=== PATIENT | female | born 1975 | race Caucasian/White ===

== ENCOUNTER 2016-05-13 16:34 | Outpatient (CLI) | payer BC ==
[~2016-05-13] VITALS: Ht 167.6 cm; Wt 97.1 kg
[~2016-05-13 16:34] MED LIST: ALPR-411 PO; FRC PO; SUMA6KIT; TOPI100T20 PO
[2016-05-13] MEDS ORDERED: ACETAMINOPHEN 325 MG TAB PO PRN (17:00)
[2016-05-13] MEDS ORDERED: LACTATED RINGER'S 1000ML 500 ML IV ONE (17:00)
[2016-05-13] MEDS ORDERED: LACTATED RINGER'S 1000ML 1,000 ML IV SCH (17:00)
[2016-05-13] MEDS ORDERED: ONDANSETRON INJ 2 MG/ML 2 ML VIAL IV PRN (17:00)
[2016-05-13 17:54] LABS: BASO % 0.3 %; BASO ABS # 0.03 K/uL (0-0.2); COMPLETE YES; EOS % 1.9 %; HEMATOCRIT 40.7 % (37-47); IG% 1.2 %; LYMPH % 14.6 %; LYMPH ABS # 1.58 K/uL (1.2-3.4); MEAN CELL VOLUME 87.9 fL (80-100); MEAN CORPUSCULAR HEMOGLOBIN 30.5 pg (25-34); MEAN CORPUSCULAR HGB CONC 34.6 g/dl (32-36); MEAN PLATELET VOLUME 9.6 fL (7.4-10.4); MONO % 8.4 %; NEUT % 73.6 %; PLATELET COUNT 267 K/uL (130-400); RED BLOOD COUNT 4.63 M/uL (4.2-5.4)
[2016-05-13 18:11] LABS: BUN/CREATININE RATIO 17.4 (10-20); CALCIUM 8.8 mg/dl (8.5-10.1); CREATININE 0.65 mg/dl (0.60-1.20); POTASSIUM 3.6 mmol/L (3.5-5.1)
[2016-05-13 18:16] LABS: ALB/GLOB RATIO 0.6 (0.9-2)
--- NOTE | 2016-05-13 18:39 | DIAGNOSTIC IMAGING REPORT ---
ULTRASOUND LIMITED CLINICAL HISTORY: Cervical length assessment. COMPARISON STUDY: No priors. FINDINGS: Real-time grayscale sonography is performed to assess the cervical length. The appellate court judge was present during the examination. There is a single uterine gestation in cephalic presentation. The cervical length measures 3.6 cm. The cervical canal appears slightly widened. No funneling was seen with Valsalva. Fluid is noted within the endocervical canal. The fetus was not assessed. IMPRESSION: The cervix measures 3.6 cm in length. Fluid was noted in the cervical canal. Electronically signed by: Tristin Whitlock M.D. 05/13/2016 6:38 PM Dictated Date/Time: 05/13/2016 6:36 PM
[2016-05-13 19:12] LABS: INR 0.9 (0.9-1.1); PROTHROMBIN TIME (PATIENT) 9.7 SECONDS (9.0-12.0)
[2016-05-13 19:29] LABS: URINE APPEARANCE CLEAR (CLEAR); URINE BILIRUBIN NEG (NEG); URINE COLOR DK YELLOW; URINE EPITHELIAL CELL AUTO >30 /lpf (0-5); URINE NITRITE NEG (NEG); URINE SPECIFIC GRAVITY 1.028 (1.000-1.030); UROBILINOGEN NEG (NEG); ZZUR CULT IF INDIC CLEAN CATCH NO
[2016-05-13 19:37] VITALS: Ht 167.6 cm; Wt 97.1 kg
[2016-05-13 19:44] LABS: MANUAL MICROSCOPIC REQUIRED? NO; REVIEW REQ? YES
[2016-06-02] MEDS ORDERED: LEVE250T PO (14:11)
[2016-06-18] MEDS ORDERED: MTR600X PO (08:48)
[2016-06-18] MEDS ORDERED: OXYC-57 PO (08:48)
[2016-07-05] MEDS ORDERED: CHOL1000 PO (14:11)
[2016-07-05] MEDS ORDERED: MAGN400T6 PO (14:11)
== END 2016-05-13 21:23 | disposition home or self-care (01) ==
LOC: C.LD 16:34 → C.OPB 16:34
PROVIDERS: ATTEND Obstetrics & Gynecology
DX: O62.9 Abnormality of forces of labor, unspecified (principal); O09.513 Supervision of elderly primigravida, third trimester; O99.353 Diseases of the nervous system complicating pregnancy, third trimester; G40.909 Epilepsy, unspecified, not intractable, without status epilepticus; Z3A.34 34 weeks gestation of pregnancy

== ENCOUNTER 2016-05-14 14:41 | Outpatient (CLI) | payer BC ==
--- NOTE | 2016-05-14 15:28 | Progress Note ---
Progress Note Date of Service May 14, 2016. Progress Note Outpatient Note 40 F at 34.4 weeks with possible leakage of fluid noted today when she got up and sat on edge of bed. No leakage of fluid at presentation to L&D. No bleeding or cramping or contractions. Underpants were dry when she came in. Amnisure done was negative. Speculum exam done shows no pooling of fluid with Nitrazine negative and no ferning. Cervix is closed. FHT Cat 1. Urine was negative. Will discharge home. Follow up nefxt week in office.
[2016-05-14 15:46] LABS: URINE APPEARANCE CLEAR (CLEAR); URINE BILIRUBIN NEG (NEG); URINE COLOR YELLOW; URINE EPITHELIAL CELL AUTO 20-30 /lpf (0-5); URINE NITRITE NEG (NEG); URINE SPECIFIC GRAVITY 1.001 (1.000-1.030); UROBILINOGEN NEG (NEG); ZZUR CULT IF INDIC CLEAN CATCH NO
[2016-05-14 15:49] LABS: MANUAL MICROSCOPIC REQUIRED? NO; REVIEW REQ? NO
[2016-06-02] MEDS ORDERED: LEVE250T PO (14:11)
[2016-07-05] MEDS ORDERED: MAGN400T6 PO (14:11)
[2016-07-05] MEDS ORDERED: CHOL1000 PO (14:11)
== END 2016-05-14 16:10 | disposition home or self-care (01) ==
LOC: C.OPB 14:41 → C.LD 14:42 → C.OPB 16:10
PROVIDERS: ATTEND Obstetrics & Gynecology
DX: Z34.83 Encounter for supervision of other normal pregnancy, third trimester (principal); Z3A.34 34 weeks gestation of pregnancy

== ENCOUNTER 2016-05-18 15:09 | Outpatient (CLI) | payer BC ==
[~2016-05-18] VITALS: Ht 167.6 cm; Wt 97.0 kg
[2016-05-18] MEDS ORDERED: LACTATED RINGER'S 1000ML 1,000 ML IV SCH (15:25)
[2016-05-18] MEDS ORDERED: LACTATED RINGER'S 1000ML 500 ML IV ONE (15:25)
[2016-05-18] MEDS ORDERED: ONDANSETRON INJ 2 MG/ML 2 ML VIAL IV PRN (16:00)
[2016-05-18] MEDS ORDERED: ONDANSETRON INJ 2 MG/ML 2 ML VIAL ONE (16:00)
[2016-05-18] MEDS ORDERED: NURSING VERBAL MED ORDER ONE (17:00)
[2016-05-18] MEDS ORDERED: FAMOTIDINE IV INJ 20 MG in DEXTROSE 5% 100ML 100 ML IV STA (17:00)
--- NOTE | 2016-05-18 19:01 | Discharge Instructions ---
Discharge Instructions Date of Service May 18, 2016. Admission Reason for Admission: Check Pre-Term Labor Discharge Discharge Diagnosis / Problem: IUP 35.1 weeks, contractions, not in active labor Discharge Goals Goal(s): Continuing OB care Activity Recommendations Activity Limitations: per Instructions/Follow-up section . Instructions / Follow-Up Instructions / Follow-Up SPECIAL CARE INSTRUCTIONS: Call Doctor if: * Regular contractions every 5 minutes or greater. * Bleeding * Water breaks or is leaking * Decreased movement * Fever >100.4 degrees F * Pain not relieved by routine measures or pain medication ordered. FOLLOW UP VISIT: Patient is to be off work until Physician clears her at her next appointment. 05/20/16 Follow-up Visit with: [facility] When:Next scheduled appointment Current Hospital Diet Patient's current hospital diet: Discharge Diet Recommended Diet: Regular OB Diet Pending Studies Studies pending at discharge: no Medical Emergencies . Who to Call and When: Medical Emergencies: If at any time you feel your situation is an emergency, please call 911 immediately. . Non-Emergent Contact Non-Emergency issues call your: Investor Relations Associate . . "Provider Documentation" section prepared by Randolph Heath. VTE Core Measure Inpt VTE Proph given/why not?: Treatment not indicated
[2016-05-18 19:48] VITALS: Ht 167.6 cm; Wt 97.0 kg
[2016-05-18] MEDS ORDERED: LEVE750T PO (20:15)
[2016-05-18] MEDS ORDERED: LEVE250T PO (20:15)
[2016-06-02] MEDS ORDERED: LEVE250T PO (14:11)
[2016-06-18] MEDS ORDERED: OXYC-57 PO (08:48)
[2016-06-18] MEDS ORDERED: MTR600X PO (08:48)
[2016-07-05] MEDS ORDERED: MAGN400T6 PO (14:11)
[2016-07-05] MEDS ORDERED: CHOL1000 PO (14:11)
== END 2016-05-18 19:30 | disposition home or self-care (01) ==
LOC: C.LD 15:09 → C.OPB 15:09
PROVIDERS: ATTEND Obstetrics & Gynecology
DX: O62.9 Abnormality of forces of labor, unspecified (principal); Z3A.35 35 weeks gestation of pregnancy

== ENCOUNTER 2016-06-02 15:40 | Outpatient (CLI) | payer BC ==
[~2016-06-02] VITALS: Ht 167.6 cm; Wt 99.0 kg
[~2016-06-02 15:40] MED LIST changes: -ALPR-411 PO; +LEVE250T PO; +LEVE750T PO; -SUMA6KIT; -TOPI100T20 PO
[2016-06-02 17:26] VITALS: Ht 167.6 cm; Wt 99.0 kg
[2016-06-18] MEDS ORDERED: MTR600X PO (08:48)
[2016-06-18] MEDS ORDERED: OXYC-57 PO (08:48)
[2016-07-05] MEDS ORDERED: MAGN400T6 PO (14:11)
[2016-07-05] MEDS ORDERED: CHOL1000 PO (14:11)
== END 2016-06-02 16:45 | disposition home or self-care (01) ==
LOC: C.LD 15:40 → C.OPB 15:40
PROVIDERS: ATTEND Obstetrics & Gynecology
DX: O62.9 Abnormality of forces of labor, unspecified (principal); Z3A.37 37 weeks gestation of pregnancy

== ENCOUNTER 2016-06-15 05:30 | Inpatient (IN) | payer BC ==
--- NOTE | 2016-06-02 14:40 | PAT Medication Instructions ---
Service Date Jun 02, 2016. Current Home Medication List Cholecalciferol (Vitamin D3), 1 TAB PO QAM Levetiracetam (Keppra), 1,000 MG PO BID Magnesium Oxide (Mag-Ox), 400 MG PO QAM Multivit/Min/Iron/Fol Ac/Pren ( Vitamin), 1 TAB PO QAM Medication Instructions For Your Scheduled Surgery - Hold the following medications the morning of surgery: Multivit/Min/Iron/Fol Ac/Pren ( Vitamin), 1 TAB PO QAM Magnesium Oxide (Mag-Ox), 400 MG PO QAM Cholecalciferol (Vitamin D3), 1 TAB PO QAM - Take the following medications the morning of surgery with a sip of water: Levetiracetam (Keppra), 1,000 MG PO BID - Take the following medications as scheduled the night before surgery: Levetiracetam (Keppra), 1,000 MG PO BID If you have any questions please call us at [phone] (Ines Barron PA-C) or [phone] or [phone]
[2016-06-02 15:14] LABS: BASO % 0.2 %; BASO ABS # 0.02 K/uL (0-0.2); COMPLETE YES; EOS % 1.3 %; HEMATOCRIT 38.4 % (37-47); IG% 1.1 %; LYMPH % 16.4 %; LYMPH ABS # 1.37 K/uL (1.2-3.4); MEAN CELL VOLUME 89.1 fL (80-100); MEAN CORPUSCULAR HEMOGLOBIN 30.9 pg (25-34); MEAN CORPUSCULAR HGB CONC 34.6 g/dl (32-36); MEAN PLATELET VOLUME 9.7 fL (7.4-10.4); MONO % 5.4 %; NEUT % 75.6 %; PLATELET COUNT 207 K/uL (130-400); RED BLOOD COUNT 4.31 M/uL (4.2-5.4); WHITE BLOOD COUNT 8.36 K/uL (4.8-10.8)
--- NOTE | 2016-06-14 16:54 | HISTORY & PHYSICAL EXAMINATION ---
DATE OF ADMISSION: 06/15/2016 REASON FOR ADMISSION: Elective repeat section. HISTORY OF PRESENT ILLNESS: The patient is a 40-year-old female, para 2-1-1-7-2 who was admitted for an elective repeat section. PAST MEDICAL HISTORY: Positive for history of migraines, history of seizure disorder, history of depression, history of atrial septal defect. PAST SURGICAL HISTORY: Positive for appendectomy and primary . SOCIAL HISTORY: Denies smoking, alcohol or drug use. MEDICATIONS: vitamins, Fioricet as needed, magnesium 400 mg daily, Keppra 500 mg 2 tablets by mouth every 12 hours, and vitamin D. PHYSICAL EXAMINATION: HEENT: Within normal limits. LUNGS: Clear to auscultation. COR: Regular rate and rhythm. ABDOMEN: Soft, gravid. heart tone category 1. NEUROLOGICALLY: Intact. EXTREMITIES: Within normal limits. SKIN: No rash or edema. ASSESSMENT: Term for elective repeat section.
[2016-06-15] VITALS (11 sets, daily range): BP systolic 123–130; BP diastolic 69–85; PULSE 93–94; TEMP 36.8; O2SAT 100; Ht 167.6 cm; Wt 97.3 kg
[~2016-06-15] VITALS: Ht 167.6 cm; Wt 97.3 kg
[~2016-06-15 05:30] MED LIST changes: -FRC PO; -LEVE750T PO
[2016-06-15] MEDS ORDERED: CEFAZOLIN IV 2,000 MG in DEXTROSE 5% 50ML IV SCH (06:00)
[2016-06-15] MEDS ORDERED: LACTATED RINGER'S 1000ML 1,000 ML IV SCH ×2 (06:00→09:02)
[2016-06-15] MEDS ORDERED: CITRIC ACID/SODIUM CITRATE 15 ML UDC PO SCH (06:00)
[2016-06-15 06:16] LABS: BASO % 0.4 %; BASO ABS # 0.04 K/uL (0-0.2); HEMATOCRIT 40.5 % (37-47); IG% 0.8 %; LYMPH % 17.8 %; MEAN CELL VOLUME 90.8 fL (80-100); MEAN CORPUSCULAR HEMOGLOBIN 31.4 pg (25-34); MEAN PLATELET VOLUME 9.7 fL (7.4-10.4); MONO % 9.9 %; NEUT % 69.1 %; PLATELET COUNT 231 K/uL (130-400); RED BLOOD COUNT 4.46 M/uL (4.2-5.4); WHITE BLOOD COUNT 9.54 K/uL (4.8-10.8)
[2016-06-15 06:26] LABS: COMPLETE YES; MEAN CORPUSCULAR HGB CONC 34.6 g/dl (32-36)
--- NOTE | 2016-06-15 07:15 | History & Physical Bridge Note ---
H&P Re-Evaluation Bridge Note: I have examined the patient, reviewed the History & Physical and in the interval since the performance of the History & Physical I have noted the following changes of clinical significance: No changes noted
[2016-06-15] MEDS ORDERED: FENTANYL CITRATE INJ 50 MCG/1 ML 2 ML VIAL ONE (07:21)
[2016-06-15] MEDS ORDERED: MoRPHine SULFATE PF 1 MG/ML 10 ML AMP/VIAL ONE (07:22)
[2016-06-15] MEDS ORDERED: OXYTOCIN INJ 10 UNITS/ML VIAL ONE (07:24)
[2016-06-15] MEDS ORDERED: OXYTOCIN INJ 20 UNITS in LACTATED RINGER'S 1000ML 1,000 ML IV SCH (09:02)
[2016-06-15] MEDS ORDERED: NALOXONE HCL INJ 0.08 MG in SYRINGE 1.8 ML IV PRN (09:04)
[2016-06-15] MEDS ORDERED: LACTATED RINGER'S 1000ML 500 ML IV PRN (09:04)
[2016-06-15] MEDS ORDERED: SODIUM CHLORIDE 0.9% 1000ML 1,000 ML IV PRN (09:04)
[2016-06-15] MEDS ORDERED: NALOXONE HCL INJ 1 MG in SODIUM CHLORIDE 0.9% 1000ML 1,000 ML IV PRN ×4 (09:04)
--- NOTE | 2016-06-15 09:10 | [facility] Post Operative Brief Note ---
Immediate Operative Summary Operative Date Repeat section low segment transverse Jun 15, 2016. Pre-Operative Diagnosis Previous Caesarean Section; Desires Repeat Caesarean Section and Bilateral Tubal Ligation. Post-Operative Diagnosis elective repeat section low segment transverse Procedure(s) Performed Live Female Infant at [address] Gilman Horse And Wagon Driver Surgeon(s) Dr. Gunn Estimated Blood Loss 800 ML. Findings live female Apgars 8/9 Fluids (cc crystalloids) LR 1900 ml Specimens Placenta (Exam) Cord Blood Drains Bell urine 400 ml. Anesthesia spinal Complication(s) None Disposition L&D
[2016-06-15] MEDS ORDERED: MoRPHine SULFATE PF 1 MG/ML 10 ML AMP/VIAL EPI PRN (09:15)
[2016-06-15] MEDS ORDERED: MAGNESIUM HYDROXIDE SUSP 30 ML UDC PO PRN (09:15)
[2016-06-15] MEDS ORDERED: DIPHTHERIA/TETANUS/PERTUSSIS 0.5 ML SYR/VIAL IM. ONE (09:15)
[2016-06-15] MEDS ORDERED: SENNA 8.6 MG TAB PO PRN (09:15)
[2016-06-15] MEDS ORDERED: ONDANSETRON INJ 2 MG/ML 2 ML VIAL IV PRN (09:15)
[2016-06-15] MEDS ORDERED: DiphenhydrAMINE HCL 50 MG/ML VIAL IV PRN (09:15)
[2016-06-15] MEDS ORDERED: SUPERCREAM 0.870 % 15GM JAR EXT PRN (09:15)
[2016-06-15] MEDS ORDERED: KETOROLAC TROMETHAMINE 30 MG/ML VIAL IV. PRN (09:15)
[2016-06-15] MEDS ORDERED: HYDROCORTISONE ACETATE 25 MG SUPP PR PRN (09:15)
[2016-06-15] MEDS ORDERED: EpHEDrine SULFATE INJ 50 MG/ML AMP IV PRN (09:15)
[2016-06-15] MEDS ORDERED: NALOXONE HCL 0.4 MG/1 ML VIAL/CARP IV PRN (09:15)
[2016-06-15] MEDS ORDERED: MEASLES, MUMPS & RUBELLA VIRUS VIAL SQ. ONE (09:15)
[2016-06-15] MEDS ORDERED: LANOLIN OINT EXT PRN ×2 (09:15)
[2016-06-15] MEDS ORDERED: PROMETHAZINE HCL INJ 25 MG in SODIUM CHLORIDE 0.9% 50ML 50 ML IV PRN (09:15)
[2016-06-15] MEDS ORDERED: NALBUPHINE HCL INJ 10 MG/ML AMP IV PRN (09:15)
[2016-06-15] MEDS ORDERED: NO NARCOTICS OR SEDATIVES SCH (09:15)
[2016-06-15] MEDS ORDERED: BENZOCAINE 20% AER SPR 82.5 GM CAN EXT PRN (09:15)
--- NOTE | 2016-06-15 09:15 | Anesthesiology Progress Note ---
Anesthesia Post Op Note Date & Time Jun 15, 2016 at 09:15 Vital Signs Pain Intensity: 2.0 Notes Mental Status: alert / awake / arousable, participated in evaluation Pt Amnestic to Procedure: No Nausea / Vomiting: adequately controlled Pain: adequately controlled Airway Patency, RR, SpO2: stable & adequate BP & HR: stable & adequate Hydration State: stable & adequate Neuraxial Anesthesia: was administered, sensory block is resolving Anesthetic Complications: no major complications apparent
[2016-06-15] MEDS ORDERED: KETOROLAC TROMETHAMINE 30 MG/ML VIAL ONE (09:17)
--- NOTE | 2016-06-15 10:25 | OPERATIVE REPORT ---
DATE OF OPERATION: 06/15/2016 PREOPERATIVE DIAGNOSIS: Repeat section, low segment transverse. POSTOPERATIVE DIAGNOSIS: Same. PROCEDURE PERFORMED: Repeat section, low segment transverse. SURGEON: Dr. Gilman. HYDRAULIC PRESS OPERATOR: Dr. Gunn. ESTIMATED BLOOD LOSS: 800 mL. ANESTHESIA: Spinal. FINDINGS: Live female, Apgars 8 and 9, weight 8-4. COMPLICATIONS: None. SPECIMENS: Placenta and cord blood. FLUIDS TOTAL: LR 1900 mL. URINE OUTPUT: 400 mL clear urine. CLINICAL HISTORY: The patient is a 40-year-old female para 2-1-1-7-2 at 39 and 1 day, admitted for an elective repeat section and planned tubal ligation. The patient was identified prior to the start of the procedure and a time-out was called. It should be noted that a tubal ligation was not performed due to the uterus being stuck to the abdominal wall and unable to remove the uterus or to adequately visualize tubes. PROCEDURE: Under satisfactory spinal anesthesia, the patient was prepped and draped in usual sterile fashion. A low Pfannenstiel incision was then made entering into the abdominal cavity in successful layers. The uterus was stuck to the abdominal wall, it was very difficult to dissect into the peritoneal cavity. The bladder blade was entered as a low segment transverse incision was made after the bladder was secured inferiorly. Clear urine was noted after the incision was made into the uterus. The incision was widened in the AP diameter. The infant was then delivered from the vertex presentation with the aid of fundal pressure. Late cord clamping was accomplished. The cord was then clamped and cut, delivering a live female, Apgars 8 and 9, weight 8-4. Cord blood was obtained. Placenta was then manually removed intact and submitted to pathology as a separate specimen. The uterus was not able to be exteriorized due to dense adhesions and the uterus being stuck to the abdominal wall. Ring forceps were then placed on both angles, the inferior margin and another ring was used to dilate the cervix. The uterus was closed in double layer closure with 0 Vicryl suture in a continuous interlocking fashion followed by a second imbricating suture of 0 Vicryl suture. The initial sponge, needle and instrument count were found to be correct. The uterus was inspected. Several areas were cauterized with the Bovie and Ximena was then used to seal some of the small vessel bleeding. Several pieces of Seprafilm were then placed. The fascia was then reapproximated from both ends using 0 Vicryl suture in a continuous fashion. Subcuticular space was irrigated. Bleeders were then cauterized. The skin was then reapproximated with lily. Clear urine was noted from the Bell. Estimated blood loss 800 mL. The final sponge, needle and instrument count were found to be correct. The patient was then placed supine on a stretcher and taken to recovery room in stable condition. I attest to the content of the Intraoperative Record and any orders documented therein. Any exceptio ns are noted below.
[2016-06-15] MEDS ORDERED: NURSING VERBAL MED ORDER ONE (10:30)
[2016-06-15] MEDS: SIMETHICONE 80 MG CHEW PO SCH ×3 (13:00→19:40)
[2016-06-15] MEDS ORDERED: HYDROmorphone INJ 2 MG/ML SYR/VIAL IV PRN (13:30)
[2016-06-15] MEDS: LEVETIRACETAM 500 MG TAB PO SCH (19:04)
[2016-06-15] MEDS: DOCUSATE SODIUM 100 MG CAP PO SCH (19:40)
[2016-06-16] VITALS (9 sets, daily range): BP systolic 109–137; BP diastolic 67–117; PULSE 98–107; TEMP 36.8–36.9; O2SAT 95–100
[2016-06-16] MEDS ORDERED: OXYCODONE/ACETAMINOPHEN 5-325 TAB PO PRN (03:00)
[2016-06-16] MEDS ORDERED: MEPERIDINE HCL 75 MG/ML CARP IV PRN (03:00)
[2016-06-16] MEDS ORDERED: MEPERIDINE HCL 50 MG/ML CARP IV PRN (03:00)
[2016-06-16] MEDS ORDERED: DiphenhydrAMINE HCL 50 MG/ML VIAL IV PRN (03:00)
[2016-06-16] MEDS ORDERED: DC INTRASPINAL MORPHINE SCH (03:00)
[2016-06-16] MEDS ORDERED: ONDANSETRON INJ 2 MG/ML 2 ML VIAL IV PRN (03:00)
[2016-06-16] MEDS ORDERED: KETOROLAC TROMETHAMINE 30 MG/ML VIAL IV. PRN (03:00)
[2016-06-16] MEDS: IBUPROFEN 600 MG TAB PO PRN ×5 (03:15→23:38)
[2016-06-16] MEDS: OXYCODONE/ACETAMINOPHEN 5-325 TAB PO PRN ×5 (06:02→23:38)
--- NOTE | 2016-06-16 07:18 | OB/GYN Progress Note ---
DRY TALC RACKER Progress Note Date of Service Jun 16, 2016. Subjective conversation w/ patient, physical exam Ambulation: ambulating normally Voiding: no voiding problems Passing Gas: Yes Diet Tolerance: Regular Diet Lochia: Small Feeding Type: Breast Feeding Pain: 03/23 Notes: Doing well. Pain well controlled. States she feels pretty good. Gonzalez in place and draining clear urine. Lochia minimal. Objective Vital Signs Date Time Temp Pulse Resp B/P Pulse Ox O2 Delivery O2 Flow Rate FiO2 06/16/16 03:30 36.9 104 18 137/82 Room Air 06/16/16 03:00 18 100 06/16/16 02:00 18 100 06/16/16 01:00 18 100 06/16/16 01:00 18 95 06/16/16 00:00 20 98 06/16/16 00:00 36.8 98 18 109/117 98 Room Air 06/16/16 00:00 98 Room Air 06/15/16 23:00 18 100 06/15/16 22:00 20 100 06/15/16 21:00 20 100 06/15/16 20:00 18 100 06/15/16 19:45 100 Room Air 06/15/16 19:00 18 100 06/15/16 18:00 20 100 06/15/16 17:00 20 100 06/15/16 16:36 100 Room Air 06/15/16 16:00 20 100 06/15/16 15:00 100 Room Air 06/15/16 15:00 20 100 06/15/16 15:00 36.8 93 20 123/69 100 Room Air Physical Exam General Appearance: WELL-APPEARING Respiratory/Chest: chest non-tender, lungs clear Cardiovascular: regular rate, rhythm Abdomen: normal bowel sounds Fundus: Firm Incision Description: Clean, Dry & Intact Extremities: normal range of motion, non-tender, no calf tenderness Laboratory Results Last 24 Hours Test 06/16/16 06:26 Assessment and Plan Post-Op Day Number: 1 Continue Routine Care: -D/C gonzalez this AM -Advance diet and activity as tolerated -Continue routine postop care
[2016-06-16] MEDS: LEVETIRACETAM 500 MG TAB PO SCH ×2 (07:48→19:48)
[2016-06-16] MEDS: SIMETHICONE 80 MG CHEW PO SCH ×4 (07:49→19:48)
[2016-06-16] MEDS: DOCUSATE SODIUM 100 MG CAP PO SCH ×2 (07:49→19:47)
[2016-06-16] MEDS: FERROUS SULFATE 325 MG TAB PO SCH (07:49)
[2016-06-16] MEDS: PRENATAL VITAMIN TAB PO SCH (07:49)
[2016-06-16 08:24] LABS: BASO % 0.2 %; BASO ABS # 0.02 K/uL (0-0.2); COMPLETE YES; EOS % 1.5 %; HEMATOCRIT 34.3 % (37-47); IG% 0.4 %; LYMPH % 11.7 %; LYMPH ABS # 1.11 K/uL (1.2-3.4); MEAN CELL VOLUME 91.2 fL (80-100); MEAN CORPUSCULAR HEMOGLOBIN 31.4 pg (25-34); MEAN CORPUSCULAR HGB CONC 34.4 g/dl (32-36); MONO % 11.4 %; NEUT % 74.8 %; PLATELET COUNT 193 K/uL (130-400); RED BLOOD COUNT 3.76 M/uL (4.2-5.4); WHITE BLOOD COUNT 9.51 K/uL (4.8-10.8)
--- NOTE | 2016-06-16 10:06 | Anesthesiology Progress Note ---
Anesthesia Post Op Note Date & Time Jun 16, 2016 at 10:06 Vital Signs Pain Intensity: 3.0 Vital Signs Past 12 Hours Date Time Temp Pulse Resp B/P Pulse Ox O2 Delivery O2 Flow Rate FiO2 06/16/16 07:40 36.8 103 20 125/67 96 Room Air 06/16/16 07:40 Room Air 06/16/16 03:30 36.9 104 18 137/82 Room Air 06/16/16 03:00 18 100 06/16/16 02:00 18 100 06/16/16 01:00 18 100 06/16/16 01:00 18 95 06/16/16 00:00 20 98 06/16/16 00:00 36.8 98 18 109/117 98 Room Air 06/16/16 00:00 98 Room Air 06/15/16 23:00 18 100 Notes Mental Status: alert / awake / arousable, participated in evaluation Pt Amnestic to Procedure: Yes Nausea / Vomiting: adequately controlled Pain: adequately controlled Airway Patency, RR, SpO2: stable & adequate BP & HR: stable & adequate Hydration State: stable & adequate Neuraxial Anesthesia: sensory block resolved Anesthetic Complications: no major complications apparent
[2016-06-16] MEDS ORDERED: BISACODYL 5 MG TABEC PO ONE (22:00)
[2016-06-17] MEDS: IBUPROFEN 600 MG TAB PO PRN ×4 (06:07→20:02)
[2016-06-17] MEDS: OXYCODONE/ACETAMINOPHEN 5-325 TAB PO PRN ×4 (06:08→20:02)
[2016-06-17 07:30] VITALS: BP 112/74; PULSE 92; TEMP 36.2; O2SAT 98
[2016-06-17] MEDS: DOCUSATE SODIUM 100 MG CAP PO SCH ×2 (07:45→19:55)
[2016-06-17] MEDS: FERROUS SULFATE 325 MG TAB PO SCH (07:45)
[2016-06-17] MEDS: SIMETHICONE 80 MG CHEW PO SCH ×4 (07:45→19:56)
[2016-06-17] MEDS: PRENATAL VITAMIN TAB PO SCH (07:45)
[2016-06-17] MEDS: LEVETIRACETAM 500 MG TAB PO SCH ×2 (07:45→19:56)
--- NOTE | 2016-06-17 07:47 | OB/GYN Progress Note ---
SYSTEMS INTEGRATOR Progress Note Date of Service: Jun 17, 2016. Patient is seen and examined. She feels well, no complaints. Pain is under control with oral meds. Ambulating without dizziness Voiding without difficulty Tolerating regular diet with out N&V Flatus + BM NEG Bleeding is minimal No fever/ chills/ CP/ SOB/ N&V/ Leg pain Breast and bottle feeding without problems Date Time Temp Pulse Resp B/P Pulse Ox O2 Delivery O2 Flow Rate FiO2 06/16/16 23:30 97 Room Air 06/16/16 16:50 36.8 107 16 126/81 97 Room Air 06/16/16 16:45 Room Air Test 05/13/16 17:47 05/13/16 18:00 05/14/16 15:18 05/14/16 16:10 Prothrombin Time 9.7 Prothrombin Time INR 0.9 PTT 25.9 Partial Thromboplastin Ratio 1.0 Fibrinogen 442 H Sodium Level 139 Potassium Level 3.6 Chloride Level 108 H Carbon Dioxide Level 18 L Anion Gap 13.0 H Blood Urea Nitrogen 11 Creatinine 0.65 Est Creatinine Clear Calc Drug Dose 137.8 Estimated GFR () 130.5 Estimated GFR (Non- 112.6 BUN/Creatinine Ratio 17.4 Random Glucose 143 H Calcium Level 8.8 Total Bilirubin 0.4 Aspartate Amino Transferase (AST) 15 Alanine Aminotransferase (ALT) 29 Alkaline Phosphatase 89 Lactate Dehydrogenase 159 Total Protein 6.9 Albumin 2.7 L Globulin 4.2 H Albumin/Globulin Ratio 0.6 L Urine Color DK YELLOW YELLOW Urine Appearance CLEAR CLEAR Urine pH 6.0 7.0 Urine Specific [place] 1.028 1.001 Urine Protein TRACE H NEG Urine Glucose (UA) NEG NEG Urine Ketones TRACE H NEG Urine Occult Blood NEG 1+ H Urine Nitrite NEG NEG Urine Bilirubin NEG NEG Urine Urobilinogen NEG NEG Urine Leukocyte Esterase NEG NEG Urine WBC (Auto) 1-5 0 Urine RBC (Auto) 0-4 0-4 Urine Hyaline Casts (Auto) 5-10 H 1-5 Urine Epithelial Cells (Auto) >30 H 20-30 H Urine Bacteria (Auto) NEG NEG Urine Renal Epithelial Cells Amniotic Fluid Protein NEG Test 06/02/16 15:00 06/15/16 05:55 06/16/16 06:26 06/17/16 07:25 White Blood Count 8.36 9.54 9.51 Red Blood Count 4.31 4.46 3.76 L Hemoglobin 13.3 14.0 11.8 L Pending Hematocrit 38.4 40.5 34.3 L Pending Mean Corpuscular Volume 89.1 90.8 91.2 Mean Corpuscular Hemoglobin 30.9 31.4 31.4 Mean Corpuscular Hemoglobin Concent 34.6 34.6 34.4 Platelet Count 207 231 193 Mean Platelet Volume 9.7 9.7 10.0 Neutrophils (%) (Auto) 75.6 69.1 74.8 Lymphocytes (%) (Auto) 16.4 17.8 11.7 Monocytes (%) (Auto) 5.4 9.9 11.4 Eosinophils (%) (Auto) 1.3 2.0 1.5 Basophils (%) (Auto) 0.2 0.4 0.2 Neutrophils # (Auto) 6.32 6.59 H 7.12 H Lymphocytes # (Auto) 1.37 1.70 1.11 L Monocytes # (Auto) 0.45 0.94 H 1.08 H Eosinophils # (Auto) 0.11 0.19 0.14 Basophils # (Auto) 0.02 0.04 0.02 RDW Standard Deviation 47.2 H 48.7 H 48.6 H RDW Coefficient of Variation 14.5 14.6 H 14.7 H Immature Granulocyte % (Auto) 1.1 0.8 0.4 Immature Granulocyte # (Auto) 0.09 H 0.08 H 0.04 H Last 24 Hours Test 06/17/16 07:25 PE: General: Alert, orientedx3, NAD CVS: S1S2 RRR Lungs; CTAB Abd: soft, NT, fundus firm, below Umbilicus Incision: Clean, dry, intact, lily intact Perineum intact, Lochia rubra minimal Ext; NT, no edema AP: 40 yo s/p C Section, pod# 2 VSS Afebrile doing well Continue routine postop care Encourage ambulation, PO intake All questions were answered D/C home tomorrow
[2016-06-17 08:40] LABS: HEMATOCRIT 33.8 % (37-47)
[2016-06-17] MEDS ORDERED: BISACODYL 10 MG SUPP PR PRN (09:15)
--- NOTE | 2016-06-17 14:47 | OB/GYN Progress Note ---
FINISH INSPECTOR Progress Note Date of Service: Jun 17, 2016. Patient is reevaluated She started to feel right sided calf, lower leg pains for the last 2 hours It is tender to touch and swollen Left lower leg is more swollen No CP/SOB/ Dizziness Date Time Temp Pulse Resp B/P Pulse Ox O2 Delivery O2 Flow Rate FiO2 06/17/16 07:30 36.2 92 16 112/74 98 Room Air 06/17/16 07:30 98 Room Air 06/16/16 23:30 97 Room Air 06/16/16 16:50 36.8 107 16 126/81 97 Room Air 06/16/16 16:45 Room Air PE: Extrem: SCD's on Right: 1+ pretibial and ankle edema, tender to touch on right side of ankle and tibia, no redness or cord Left: 2+ pretibial and ankle edema, NT Plan: Doppler US of LE Continue to monitor
[2016-06-17 15:20] VITALS: BP 127/80; PULSE 110; TEMP 36.7; O2SAT 96
--- NOTE | 2016-06-17 16:40 | DIAGNOSTIC IMAGING REPORT ---
ULTRASOUND VENOUS DOPPLER LWR EXT BILA CLINICAL HISTORY: Leg pain. Recent . COMPARISON STUDY: No previous studies for comparison. FINDINGS: Real-time and color flow Doppler imaging were performed. Flow was seen within the femoral, popliteal and calf veins with no intraluminal thrombus demonstrated. The saphenous vein is patent. IMPRESSION: No evidence of lower extremity DVT. Electronically signed by: Antonio Zaldivar M.D. 06/17/2016 4:38 PM Dictated Date/Time: 06/17/2016 4:37 PM
--- NOTE | 2016-06-17 17:45 | OB/GYN Progress Note ---
MANAGER FOOD Progress Note Date of Service: Jun 17, 2016. Doppler US of LE is negative for DVT Patient is aware She has h/o Depression, was on Lexapro before, desires to start it back Will start at 10 mg for 0 days and may increase to 20 mg daily She appreciated All questions were answered
[2016-06-17] MEDS: ESCITALOPRAM OXALATE 10 MG TAB PO SCH (19:55)
[2016-06-17 22:10] VITALS: BP 123/75; PULSE 105; TEMP 36.7; O2SAT 96
[2016-06-17] MEDS ORDERED: BUTALBITAL/ACETAMIN/CAFFEINE TAB PO PRN (22:45)
[2016-06-17] MEDS ORDERED: ALPRAZOLAM 0.25 MG TAB PO PRN (22:45)
--- NOTE | 2016-06-17 22:47 | OB/GYN Progress Note ---
KICK PRESS SETTER Progress Note Date of Service: Jun 17, 2016. Patient started to have headache tonight It is typical migraine REEDER for her It has been behind her right eye and bahai, with light sensitivity She sees spots and lines those are typical aura symptoms for her too No numbness or tingling Nausea+ She used to take Topamax for prophylaxis. She stopped with knowledge of She has been taking OTC Magnesium cap 400 mg, she has not taken since she was admitted to hospital She takes Fioricet when she has REEDER VSS Afebrile No sensory or motor deficit No nuchal rigidity DTR: 1+/1+, no clonus AP: 40 yo s/p RLTCS now with migraine REEDER VSS Afebrile Will check LFT, Platelets Fioricet for REEDER Continue with magnesium prophylaxis Phenergan for nausea Continue to monitor
[2016-06-17] MEDS ORDERED: PROMETHAZINE HCL 25 MG TAB PO STA (22:48)
[2016-06-17 23:05] VITALS: BP 116/67; PULSE 100; TEMP 36.8; O2SAT 96
[2016-06-17 23:31] LABS: BASO % 0.2 %; BASO ABS # 0.02 K/uL (0-0.2); COMPLETE YES; EOS % 2.3 %; HEMATOCRIT 30.6 % (37-47); IG% 0.6 %; LYMPH % 16.5 %; LYMPH ABS # 1.55 K/uL (1.2-3.4); MEAN CORPUSCULAR HEMOGLOBIN 31.2 pg (25-34); MEAN CORPUSCULAR HGB CONC 34.6 g/dl (32-36); MEAN PLATELET VOLUME 9.2 fL (7.4-10.4); MONO % 8.8 %; NEUT % 71.6 %; PLATELET COUNT 193 K/uL (130-400); WHITE BLOOD COUNT 9.37 K/uL (4.8-10.8)
[2016-06-17 23:48] LABS: BUN/CREATININE RATIO 19.9 (10-20); CALCIUM 8.7 mg/dl (8.5-10.1); CREATININE 0.69 mg/dl (0.60-1.20); POTASSIUM 3.4 mmol/L (3.5-5.1)
[2016-06-17 23:51] LABS: ALB/GLOB RATIO 0.5 (0.9-2)
[2016-06-18 03:00] VITALS: BP 115/68; PULSE 87; TEMP 36.7; O2SAT 95
[2016-06-18] MEDS ORDERED: MAGNESIUM OXIDE 400 MG PO SCH ×2 (08:00)
[2016-06-18] MEDS ORDERED: OXYC-57 PO (08:48)
[2016-06-18] MEDS ORDERED: MTR600X PO (08:48)
--- NOTE | 2016-06-18 08:50 | Discharge Instructions ---
Discharge Instructions Date of Service Jun 18, 2016. Admission Reason for Admission: Previous Section, Desires Sterilization Discharge Discharge Diagnosis / Problem: term delivered by repeat Discharge Goals Goal(s): Routine recovery after surgery Activity Recommendations Activity Limitations: as noted below Lifting Limitations: no more than 10 pounds Exercise/Sports Limitations: gradually increase as tolerated May Resume Sexual Activity: after follow-up appointment Shower/Bathe: no limitations, keep incision dry Driving or Machine Use: . Instructions / Follow-Up Instructions / Follow-Up ACTIVITY RECOMMENDATIONS: * Gradual return to full activity over the next 2-3 weeks. * No lifting - nothing heavier than baby over the next 2-3 weeks. * Do not engage in vigorous exercise, sexual activity or sports until cleared by your physician. * Do not drive or operate any motorized equipment until cleared by your physician. * You may shower/bathe daily. BREAST CARE: If you are not breast feeding: * Wear a supportive bra 24 hours a day for one to two weeks. * Avoid stimulating your breasts and nipples as much as possible during the first few weeks after delivery. * When taking a shower, have the warm water hit your back, not breasts. * When your breasts feel full, apply ice packs. Usually three to four times a day helps ease the discomfort. * Take a mild pain medication (Tylenol/Motrin) when you are uncomfortable. If breast feeding: * Use breast milk to lubricate nipples. Lansinoh cream may be used for sore nipples. You do not need to remove cream prior to breast feeding. If using a different brand of cream, check the label for directions regarding removal of cream prior to nursing. * Wear a supportive bra. * If having problems with breasts or breast feeding, call a healthcare network pricing consultant or your health care provider. OVER THE COUNTER MEDICATION: * For discomfort or pain, you may use Acetaminophen (Tylenol), Ibuprofen (Advil ), or Naproxen (Aleve) following the package directions. * For constipation you may use Colace following the package directions. SPECIAL CARE INSTRUCTIONS: When you are discharged from the hospital, it is important for you to follow the instructions listed below: * During the first week at home, you should be able to care for yourself and your baby. In addition, the usual light household activities are encouraged. * Limit your activities to the way you feel. Do not try to clean the house or move furniture. Be sensible. * If you actively engage in sports and have done so up until the time of your delivery, you may resume these activities as soon as you feel able. This may take up to one month or even longer. Use good judgment. * Continue to take your vitamins for at least six weeks after the of your baby. * Your diet need not be limited unless you were on a special diet before your delivery. Breast-feeding mothers need around 2500 calories per day and at least 64-80 ounces of fluid per day (8 to 10 glasses). * You should eat foods from the four major food groups. Crash diets or fad diets are to be avoided. Eating lean meats, fresh fruits and vegetables, low-fat dairy products, high fiber foods and a regular exercise program, will help you get back to your pre- weight without putting your health at risk. * Constipation is sometimes a problem after delivery. Take a mild laxative as needed. If breast feeding, Milk of Magnesia is acceptable to use. You may use a suppository or Fleets enema if no episiotomy. * A daily shower or tub bath is suggested. Be sure to thoroughly and gently dry the perineum. * A bloody vaginal discharge will usually continue until around four weeks post . A small amount of bleeding may continue for as long as six weeks. Vaginal discharge changes from the bright red bleeding after delivery to pink then brownish and finally yellowish-pink before becoming white and disappearing. * Bleeding may increase with activity. Your first period may come in 4-8 weeks. If you are breast feeding, your period may be delayed even longer. * [place] (sex) can begin whenever both you and your partner feel comfortable and do not have any form of genital infection. It is recommended that you wait at least six weeks for internal and external healing to occur. If you have questions, please talk to your health care practitioner. A condom should be used to prevent infection and . * Foreplay, gentle intercourse and lubrication is very important the first several times to prevent pain. A water-based lubricant such as K-Y jelly or Astroglide may be used. * Tampons and/or Douching should be avoided until after six weeks check-up. * If you have RH negative blood and your baby is RH positive, you will receive RHOGAM by injection prior to discharge. The nurse will give you a card to keep with you that has the date and place that you received RHOGAM after delivery. * During your care, you had a Rubella screen done to check for the presence of rubella antibodies in your blood. If your test was negative, you will receive a Rubella vaccine prior to discharge. This vaccine may cause a fever, soreness at the injection site and flu-like symptoms. If these symptoms persist, notify your health care practitioner. is not advised for three months after a Rubella vaccine. * Verbalizes understanding of car seat law as reviewed with patient nursing. * Car Seat hand-out given and reviewed with patient by nursing. * Shaken baby information reviewed with patient by nursing. Call you doctor if: * Heavy bleeding (saturating several pads an hour) or passing clots the size of your fist. * A fever >101 degrees F (38.3 degrees C) on two occasions four hours apart and /or chills. * Unusual pain in the pelvic or vaginal areas. Pain should improve each day . * Call the doctor for any increased redness, drainage or swelling around the incision and any pain unrelieved by prescribed pain medication. * Any signs or symptoms of phlebitis (possible blood clots forming in the veins ): leg pain, warm, red or swollen area on leg. * "Baby Blues" lasting longer than two weeks. If you have any questions or concerns, call your health care practitioner at . FOLLOW-UP VISIT: * Incision check (staple removal) in 1 week. Please call doctor's office at to set up appointment. * Please call the office at to schedule a 6 week examination. It is important you keep this appointment. * It is important for you to make arrangements for either yearly or twice yearly check-ups thereafter. Current Hospital Diet Patient's current hospital diet: Regular OB Diet Discharge Diet Recommended Diet: Regular OB Diet Procedures Procedures Performed: Live Female Infant at 0812 Pending Studies Studies pending at discharge: no Medical Emergencies . Who to Call and When: Medical Emergencies: If at any time you feel your situation is an emergency, please call 911 immediately. . Non-Emergent Contact Non-Emergency issues call your: Primary Care Provider . . "Provider Documentation" section prepared by Hiro Gilman. VTE Core Measure Inpt VTE Proph given/why not?: Treatment not indicated
--- NOTE | 2016-06-18 08:52 | Surgery Progress Note ---
Surgery Progress Note Date of Service Jun 18, 2016. Subjective Post OP Day: 2 + feeling well Objective Vital Signs: Date Time Temp Pulse Resp B/P Pulse Ox O2 Delivery O2 Flow Rate FiO2 06/18/16 03:00 36.7 87 18 115/68 95 Room Air 06/17/16 23:05 36.8 100 18 116/67 96 Room Air 06/17/16 23:05 96 Room Air 06/17/16 22:10 36.7 105 20 123/75 96 Room Air 06/17/16 15:20 36.7 110 18 127/80 96 Room Air 06/17/16 15:20 96 Room Air General Appearance: no apparent distress Abdomen: non tender, non distended, soft Incision(s): clean, dry, intact Extremities: non-tender, normal inspection, no pedal edema Laboratory Results: Results Past 24 Hours Test 06/17/16 23:13 Range/Units White Blood Count 9.37 4.8-10.8 K/uL Red Blood Count 3.40 4.2-5.4 M/uL Hemoglobin 10.6 12.0-16.0 g/dL Hematocrit 30.6 37-47 % Mean Corpuscular Volume 90.0 80-100 fL Mean Corpuscular Hemoglobin 31.2 25-34 pg Mean Corpuscular Hemoglobin Concent 34.6 32-36 g/dl Platelet Count 193 130-400 K/uL Mean Platelet Volume 9.2 7.4-10.4 fL Neutrophils (%) (Auto) 71.6 % Lymphocytes (%) (Auto) 16.5 % Monocytes (%) (Auto) 8.8 % Eosinophils (%) (Auto) 2.3 % Basophils (%) (Auto) 0.2 % Neutrophils # (Auto) 6.70 1.4-6.5 K/uL Lymphocytes # (Auto) 1.55 1.2-3.4 K/uL Monocytes # (Auto) 0.82 0.11-0.59 K/uL Eosinophils # (Auto) 0.22 0-0.5 K/uL Basophils # (Auto) 0.02 0-0.2 K/uL RDW Standard Deviation 48.5 36.4-46.3 fL RDW Coefficient of Variation 14.6 11.5-14.5 % Immature Granulocyte % (Auto) 0.6 % Immature Granulocyte # (Auto) 0.06 0.00-0.02 K/uL Sodium Level 142 136-145 mmol/L Potassium Level 3.4 3.5-5.1 mmol/L Chloride Level 108 98-107 mmol/L Carbon Dioxide Level 23 21-32 mmol/L Anion Gap 11.0 3-11 mmol/L Blood Urea Nitrogen 14 7-18 mg/dl Creatinine 0.69 0.60-1.20 mg/dl Est Creatinine Clear Calc Drug Dose 130.0 ml/min Estimated GFR () 128.0 Estimated GFR (Non- 110.4 BUN/Creatinine Ratio 19.9 10-20 Random Glucose 103 70-99 mg/dl Calcium Level 8.7 8.5-10.1 mg/dl Total Bilirubin 0.4 0.2-1 mg/dl Aspartate Amino Transf (AST/SGOT) 14 15-37 U/L Alanine Aminotransferase (ALT/SGPT) 13 12-78 U/L Alkaline Phosphatase 69 45-117 U/L Lactate Dehydrogenase 161 84-246 U/L Total Protein 5.6 6.4-8.2 gm/dl Albumin 1.9 3.4-5.0 gm/dl Globulin 3.7 2.5-4.0 gm/dl Albumin/Globulin Ratio 0.5 0.9-2 Assessment & Plan regular diet POD#2 discharged
[2016-06-18] MEDS: SIMETHICONE 80 MG CHEW PO SCH ×2 (08:57→13:24)
[2016-06-18] MEDS: ESCITALOPRAM OXALATE 10 MG TAB PO SCH (08:57)
[2016-06-18] MEDS: LEVETIRACETAM 500 MG TAB PO SCH (08:57)
[2016-06-18] MEDS: PRENATAL VITAMIN TAB PO SCH (08:57)
[2016-06-18] MEDS: DOCUSATE SODIUM 100 MG CAP PO SCH (08:57)
[2016-06-18] MEDS: FERROUS SULFATE 325 MG TAB PO SCH (08:57)
[2016-06-18] MEDS: OXYCODONE/ACETAMINOPHEN 5-325 TAB PO PRN ×2 (08:58→13:26)
[2016-06-18] MEDS: IBUPROFEN 600 MG TAB PO PRN ×2 (08:58→13:26)
[2016-06-18 09:30] VITALS: BP 134/75; PULSE 100; TEMP 36.9; O2SAT 97
[2016-06-18] MEDS ORDERED: LXP10 PO (13:51)
[2016-06-18 15:21] VITALS: BP_DIAS 75; PULSE 100; TEMP 36.9
--- NOTE | 2016-06-28 10:40 | DISCHARGE SUMMARY ---
REASON FOR ADMISSION AND HOSPITAL COURSE: The patient is a 40-year-old female para 2-1-1-7-2 at 39 weeks and 1 day, admitted for elective section and tubal ligation. The patient underwent a repeat section under spinal anesthesia. She had a live female. Apgars were 8 and 9. weight was 8 pounds 4 ounces. The patient was not able to have a tubal ligation due to extensive adhesions and unable to perform tubal ligation. The patient was told of this outcome. There were no other complications postoperatively. Home going instructions were given. The patient was discharged on ibuprofen and oxycodone for pain. She was followed up in the office in 1 week for incision check and a regular diet on discharge.
[2016-07-05] MEDS ORDERED: MAGN400T6 PO (14:11)
[2016-07-05] MEDS ORDERED: CHOL1000 PO (14:11)
== END 2016-06-18 15:44 | disposition home or self-care (01) | DRG 765 ==
LOC: C.LD 05:30 → EDSTATUS 12:59 → C.OBG 15:20
PROVIDERS: ADMIT Obstetrics & Gynecology; ATTEND Obstetrics & Gynecology
PROC: 10D00Z1 Extraction of Products of Conception, Low, Open Approach (ICD-10-PCS; principal; 2016-06-15 07:30)
DX: O34.219 Maternal care for unspecified type scar from previous cesarean delivery (principal); O26.23 Pregnancy care for patient with recurrent pregnancy loss, third trimester; O99.354 Diseases of the nervous system complicating childbirth; O99.43 Diseases of the circulatory system complicating the puerperium; G40.909 Epilepsy, unspecified, not intractable, without status epilepticus; G43.909 Migraine, unspecified, not intractable, without status migrainosus; M79.604 Pain in right leg; R60.0 Localized edema; O99.89 Other specified diseases and conditions complicating pregnancy, childbirth and the puerperium; N73.6 Female pelvic peritoneal adhesions (postinfective); O99.63 Diseases of the digestive system complicating the puerperium; R11.0 Nausea; O99.344 Other mental disorders complicating childbirth; F32.9 Major depressive disorder, single episode, unspecified; Z37.0 Single live birth; Z3A.39 39 weeks gestation of pregnancy; Z85.41 Personal history of malignant neoplasm of cervix uteri; Z79.899 Other long term (current) drug therapy; Z30.2 Encounter for sterilization; Z53.09 Procedure and treatment not carried out because of other contraindication

== ENCOUNTER 2016-07-05 15:25 | Observation (INO) | payer BC ==
[~2016-07-05] VITALS: Ht 167.6 cm; Wt 84.0 kg
[~2016-07-05 15:25] MED LIST changes: +CHOL1000 PO; +LXP10 PO; +MAGN400T6 PO; +MTR600X PO; +OXYC-57 PO
[2016-07-05] MEDS ORDERED: HYDROmorphone INJ 1 MG/ML SYR IV STA (15:49)
[2016-07-05] MEDS ORDERED: ONDANSETRON INJ 2 MG/ML 2 ML VIAL IV STA (15:49)
--- NOTE | 2016-07-05 16:01 | EMERGENCY ROOM VISIT NOTE ---
History Report prepared by Khari: Tuan Allen Under the Supervision of: Dr. Heron Morris M.D. First contact with patient: 15:42 Chief Complaint: VAGINAL BLEEDING Stated Complaint: VAG BLEEDING History of Present Illness The patient is a 40 year old female who presents to the Emergency Room with complaints of persistent vaginal bleeding starting about 3 weeks ago. The patient had a about 3 weeks ago. She has not stopped bleeding since then but it has improved. She was lying in bed with the baby today when she started gushing blood. She currently denies any vaginal bleeding. She reports some lower abdominal pain. She denies chest pain, shortness of breath, nausea, vomiting, or any other complaints. She has a history of adhesions from previous surgeries. Source of History: patient Onset: about 3 weeks ago Position: other (global) Quality: other (vaginal bleeding) Timing: other (persistent) Associated Symptoms: + abdominal pain, No SOB, No chest pain, No nausea, No vomiting Review of Systems See HPI for pertinent positives & negatives. A total of 10 systems reviewed and were otherwise negative. Past Medical & Surgical Medical Problems: (1) Epilepsy (2) Hodgkin's granuloma of abdomen (3) PCOS (polycystic ovarian syndrome) (4) hemorrhage (5) hemorrhage, condition (6) uterine contractions in third trimester, antepartum (7) RULE OUT RUPTURED MEMBRANES 34 WEEKS (8) RULE OUT RUPTURED MEMBRANES 34 WEEKS Surgical Problems: (1) History of appendectomy Family History Cancer Diabetes mellitus Heart disease Hypertension Seizures Social History Smoking Status: Unknown if Ever Smoked Alcohol Use: none Marital Status: Housing Status: lives with family Occupation Status: employed Current/Historical Medications Scheduled Cholecalciferol (Vitamin D3), 1,000 INTER.UNIT PO QAM Escitalopram (Lexapro), 10 MG PO DAILY Levetiracetam (Keppra), 1,000 MG PO BID Magnesium Oxide (Mag-Ox), 400 MG PO BID Multivit/Min/Iron/Fol Ac/Pren ( Vitamin), 1 TAB PO QAM Scheduled PRN Ibuprofen (Motrin), 600 MG PO Q4H PRN for REEDER/Pain/Cramping or Fever Oxycodone/Acetaminophen 5MG/325MG (Percocet 5MG/325MG), 1 TABLET PO Q4H PRN for Pain Allergies Coded Allergies: Estrogens (Verified Allergy, Severe, MIGRAINES THEN SEIZURE, 06/15/16) Zonisamide (Verified Allergy, Severe, DIFFICULTY BREATHING, 06/15/16) Clonazepam (Verified Allergy, Intermediate, RASH, 06/15/16) Phenytoin (Verified Allergy, Intermediate, RASH, FEVER, 06/15/16) Carbamazepine (Verified Allergy, Unknown, RASH, 06/15/16) Lamotrigine (Verified Allergy, Unknown, RASH SOB, 06/15/16) Latex1 -Allergic Contact Dermititis (Verified Allergy, Unknown, `, 06/15/16) Nickel (Verified Allergy, Unknown, RASH WITH NICKEL, GOLD, STAINLESS STEEL , 06/15/16) Sulfa Drugs (Verified Allergy, Unknown, HIVES, 06/15/16) Sulfonylureas (Verified Allergy, Unknown, HIVES, 06/15/16) Physical Exam Vital Signs Date Time Temp Pulse Resp B/P Pulse Ox O2 Delivery O2 Flow Rate FiO2 07/05/16 20:10 68 19 141/86 97 Room Air 07/05/16 18:15 68 20 117/69 96 Room Air 07/05/16 17:27 65 20 117/69 96 Room Air 07/05/16 15:57 37.0 74 20 101/81 98 Room Air 07/05/16 15:54 100 Nasal Cannula 2.0 Physical Exam GENERAL: Patient is a healthy-appearing well-nourished HEAD: Normocephalic atraumatic EYES: Ocular movements intact pupils equal and react to light OROPHARYNX mucous membranes are moist no exudates present no erythema or edema present NECK: Supple no nuchal rigidity CHEST: Good equal expansion LUNGS: Clear and equal to auscultation CARDIAC: Normal S1 and S2 ABDOMEN: Soft nontender no guarding BACK: No CVA tenderness PELVIC EXAM: No vaginal bleeding at the moment. EXTREMITIES: No pain upon palpation normal muscle strength in all groups no clubbing cyanosis or edema NEURO: Patient is following commands is answering questions appropriately. Alert and oriented x3 Cranial Nerves 2-12 grossly intact Medical Decision & Procedures ER Provider Diagnostic Interpretation: ULTRASOUND OF THE PELVIS CLINICAL HISTORY: Vaginal bleeding status post section. COMPARISON STUDY: Pelvic CT dated 05/21/2011. TECHNIQUE: Real-time, grayscale, and color flow sonography of the pelvis is performed transabdominally. Images are reviewed in the transverse and longitudinal planes. FINDINGS: Uterus: The post gravid uterus is enlarged and heterogeneous, measuring 15.8 x 7.9 x 9.4 cm. Endometrium: The endometrium heterogeneous and measures up to 2.0 cm in thickness Ovaries: The ovaries are normal in size and morphology. The right ovary measures 3.8 x 3.0 x 3.5 cm and the left ovary measures 3.7 x 3.1 x 4.2 cm. Normal Doppler waveforms are shown within both ovaries. Pelvis: There is no free fluid in the cul-de-sac. There is a complex fluid collection seen above the bladder and anterior to the lower uterine segment. This measures 7 x 6 x 6.3 cm, and likely represents a hematoma. There is minimal flow in this region suggested on color imaging. IMPRESSION: 1. The post gravid uterus is enlarged and heterogeneous. 2. The endometrial stripe appears thickened and heterogeneous. 3. The ovaries are normal as visualized. 4. There is a 7 cm complex collection seen above the bladder and anterior to the lower uterine segment. This likely represents a hematoma given the history of recent surgery and clinical correlation will be required. Follow-up of the patient's rehabilitation physician is recommended. Repeat ultrasound in 2-3 weeks time is recommended to document resolution, or sooner if clinically warranted. Electronically signed by: Tristin Whitlock M.D. 07/05/2016 7:18 PM Dictated Date/Time: 07/05/2016 7:14 PM Laboratory Results 07/05/16 14:28 Test 07/05/16 14:28 07/05/16 16:27 07/05/16 17:20 RDW Standard Deviation 43.6 fL (36.4-46.3) RDW Coefficient of Variation 13.1 % (11.5-14.5) White Blood Count 9.17 K/uL (4.8-10.8) Red Blood Count 4.77 M/uL (4.2-5.4) Hemoglobin 14.6 g/dL (12.0-16.0) Hematocrit 43.3 % (37-47) Mean Corpuscular Volume 90.8 fL (80-100) Mean Corpuscular Hemoglobin 30.6 pg (25-34) Mean Corpuscular Hemoglobin Concent 33.7 g/dl (32-36) Platelet Count 427 K/uL (130-400) Mean Platelet Volume 9.5 fL (7.4-10.4) Neutrophils (%) (Auto) 64.2 % Lymphocytes (%) (Auto) 22.5 % Monocytes (%) (Auto) 8.9 % Eosinophils (%) (Auto) 3.3 % Basophils (%) (Auto) 0.9 % Neutrophils # (Auto) 5.89 K/uL (1.4-6.5) Lymphocytes # (Auto) 2.06 K/uL (1.2-3.4) Monocytes # (Auto) 0.82 K/uL (0.11-0.59) Eosinophils # (Auto) 0.30 K/uL (0-0.5) Basophils # (Auto) 0.08 K/uL (0-0.2) Immature Granulocyte % (Auto) 0.2 % Immature Granulocyte # (Auto) 0.02 K/uL (0.00-0.02) Prothrombin Time 10.5 SECONDS (9.0-12.0) Prothromb Time International Ratio 1.0 (0.9-1.1) Activated Partial Thromboplast Time 27.5 SECONDS (21.0-31.0) Partial Thromboplastin Ratio 1.1 Anion Gap 7.0 mmol/L (3-11) Est Creatinine Clear Calc Drug Dose 94.6 ml/min Estimated GFR () 96.6 Estimated GFR (Non- 83.3 BUN/Creatinine Ratio 20.4 (10-20) Calcium Level 9.1 mg/dl (8.5-10.1) Total Bilirubin 0.3 mg/dl (0.2-1) Aspartate Amino Transf (AST/SGOT) 19 U/L (15-37) Alanine Aminotransferase (ALT/SGPT) 37 U/L (12-78) Alkaline Phosphatase 92 U/L (45-117) Total Protein 7.7 gm/dl (6.4-8.2) Albumin 3.4 gm/dl (3.4-5.0) Globulin 4.3 gm/dl (2.5-4.0) Albumin/Globulin Ratio 0.8 (0.9-2) Human Chorionic Gonadotropin, Qual NEG (NEG) Urine Color ORANGE Urine Appearance TURBID (CLEAR) Urine pH 6.0 (4.5-7.5) Urine Specific [place] 1.012 (1.000-1.030) Urine Protein 1+ (NEG) Urine Glucose (UA) NEG (NEG) Urine Ketones NEG (NEG) Urine Occult Blood 3+ (NEG) Urine Nitrite NEG (NEG) Urine Bilirubin NEG (NEG) Urine Urobilinogen NEG (NEG) Urine Leukocyte Esterase LARGE (NEG) Urine WBC (Auto) >30 /hpf (0-5) Urine RBC (Auto) >30 /hpf (0-4) Urine Hyaline Casts (Auto) 5-10 /lpf (0-5) Urine Epithelial Cells (Auto) 5-10 /lpf (0-5) Urine Bacteria (Auto) NEG (NEG) Urine Yeast (Auto) (NONE PRSENT) Urine Test NEG (NEG) Labs reviewed by ED physician. Medications Administered Medications (Trade) Dose Ordered Sig/Dank Route Start Time Stop Time Status Last Admin Dose Admin Hydromorphone HCl (Dilaudid Inj) 1 mg NOW STAT IV 07/05/16 15:49 07/05/16 15:53 DC 07/05/16 16:11 1 MG Ondansetron HCl 4 mg 4 mg NOW STAT IV 07/05/16 15:49 07/05/16 15:53 DC 07/05/16 16:11 4 MG Oxytocin/Lactated Ringer's (Pitocin Inj/Lr 1000ml) 1,002 ml @ 125 mls/hr Q8H1M IV 07/05/16 20:07 08/04/16 20:06 07/06/16 04:09 125 MLS/HR ED Course 1542: Past medical records reviewed. The patient was evaluated in room C03. A complete history and physical examination was performed. 1549: Zofran Inj 4 mg IV, Dilaudid Inj 1 mg IV 1642: The patient's pain has somewhat improved on repeat abdominal exam. Medical Decision Differential diagnosis: Etiologies such as ectopic , dysfunction uterine bleeding, bleeding dyscrasia, trauma, infection, as well as others were entertained. This is a 40-year-old female who presents emergency department complaining of heavy vaginal bleeding that started prior to arrival. The patient recently had a section on Apil 4. She had not been having any issues. Upon arrival to the emergency department she is also complaining of left lower quadrant pelvic pain. On examination there is a minor amount of bleeding. Her CBC and renal profile are normal. I did discuss the case with the [facility] route contractor who agreed to admit the pt. Impression Primary Impression: Abnormal vaginal bleeding Scribe Attestation The scribe's documentation has been prepared under my direction and personally reviewed by me in its entirety. I confirm that the note above accurately reflects all work, treatment, procedures, and medical decision making performed by me. Departure Information Dispostion Still a Patient Referrals Yue Yepez M.D. (PCP) Patient Instructions My [facility]
[2016-07-05] MEDS ORDERED: ESCI10TA17 PO (16:29)
[2016-07-05] MEDS ORDERED: LEVE500T13 PO (16:29)
[2016-07-05] MEDS ORDERED: IBUP-1450 PO (16:29)
[2016-07-05 16:31] LABS: BASO % 0.9 %; BASO ABS # 0.08 K/uL (0-0.2); COMPLETE YES; EOS % 3.3 %; HEMATOCRIT 43.3 % (37-47); IG% 0.2 %; LYMPH % 22.5 %; LYMPH ABS # 2.06 K/uL (1.2-3.4); MEAN CELL VOLUME 90.8 fL (80-100); MEAN CORPUSCULAR HEMOGLOBIN 30.6 pg (25-34); MEAN CORPUSCULAR HGB CONC 33.7 g/dl (32-36); MEAN PLATELET VOLUME 9.5 fL (7.4-10.4); MONO % 8.9 %; NEUT % 64.2 %; PLATELET COUNT 427 K/uL (130-400); RED BLOOD COUNT 4.77 M/uL (4.2-5.4); WHITE BLOOD COUNT 9.17 K/uL (4.8-10.8)
[2016-07-05] MEDS ORDERED: OXYC-57 PO (16:31)
[2016-07-05 16:47] LABS: PARTIAL THROMBOPLASTIN RATIO 1.1; PROTHROMBIN TIME (PATIENT) 10.5 SECONDS (9.0-12.0)
[2016-07-05 16:59] LABS: BUN/CREATININE RATIO 20.4 (10-20); CALCIUM 9.1 mg/dl (8.5-10.1); CREATININE 0.88 mg/dl (0.60-1.20)
[2016-07-05 17:14] LABS: ALB/GLOB RATIO 0.8 (0.9-2)
[2016-07-05 17:25] LABS: PREG INTERNAL NEGATIVE QC NEG CLEAR BACKGROUND; PREG INTERNAL POSITIVE QC POS CONTROL LINE
[2016-07-05 17:52] LABS: URINE APPEARANCE TURBID (CLEAR); URINE BILIRUBIN NEG (NEG); URINE COLOR ORANGE; URINE NITRITE NEG (NEG); URINE SPECIFIC GRAVITY 1.012 (1.000-1.030); UROBILINOGEN NEG (NEG)
[2016-07-05 18:01] LABS: MANUAL MICROSCOPIC REQUIRED? NO; REVIEW REQ? YES
--- NOTE | 2016-07-05 19:20 | DIAGNOSTIC IMAGING REPORT ---
ULTRASOUND OF THE PELVIS CLINICAL HISTORY: Vaginal bleeding status post section. COMPARISON STUDY: Pelvic CT dated 05/21/2011. TECHNIQUE: Real-time, grayscale, and color flow sonography of the pelvis is performed transabdominally. Images are reviewed in the transverse and longitudinal planes. FINDINGS: Uterus: The post gravid uterus is enlarged and heterogeneous, measuring 15.8 x 7.9 x 9.4 cm. Endometrium: The endometrium heterogeneous and measures up to 2.0 cm in thickness Ovaries: The ovaries are normal in size and morphology. The right ovary measures 3.8 x 3.0 x 3.5 cm and the left ovary measures 3.7 x 3.1 x 4.2 cm. Normal Doppler waveforms are shown within both ovaries. Pelvis: There is no free fluid in the cul-de-sac. There is a complex fluid collection seen above the bladder and anterior to the lower uterine segment. This measures 7 x 6 x 6.3 cm, and likely represents a hematoma. There is minimal flow in this region suggested on color imaging. IMPRESSION: 1. The post gravid uterus is enlarged and heterogeneous. 2. The endometrial stripe appears thickened and heterogeneous. 3. The ovaries are normal as visualized. 4. There is a 7 cm complex collection seen above the bladder and anterior to the lower uterine segment. This likely represents a hematoma given the history of recent surgery and clinical correlation will be required. Follow-up of the patient's clipper machine operator is recommended. Repeat ultrasound in 2-3 weeks time is recommended to document resolution, or sooner if clinically warranted. Electronically signed by: Tristin Whitlock M.D. 07/05/2016 7:18 PM Dictated Date/Time: 07/05/2016 7:14 PM
[2016-07-05] MEDS ORDERED: PRENTAB26 PO (20:15)
[2016-07-05] MEDS ORDERED: OXYCODONE/ACETAMINOPHEN 5-325 TAB PO PRN (20:15)
[2016-07-05] MEDS ORDERED: ACETAMINOPHEN/CODEINE 300/30MG TAB PO PRN ×2 (20:15)
[2016-07-05] MEDS ORDERED: MISOPROSTOL 200 MCG TAB PR ONE (20:15)
[2016-07-05] MEDS ORDERED: ACETAMINOPHEN 325 MG TAB PO PRN (20:15)
[2016-07-05 21:00] VITALS: BP 125/81; PULSE 66; TEMP 36.7; O2SAT 99; Ht 167.6 cm; Wt 84.0 kg
[2016-07-05] MEDS: DOCUSATE SODIUM 100 MG CAP PO SCH (21:00)
[2016-07-05] MEDS: OXYTOCIN INJ 20 UNITS in LACTATED RINGER'S 1000ML 1,000 ML IV SCH (21:46)
--- NOTE | 2016-07-05 22:13 | HISTORY & PHYSICAL EXAMINATION ---
DATE OF ADMISSION: 07/05/2016 HISTORY OF PRESENT ILLNESS: This is a 40-year-old, who presented to the Emergency Room today with vaginal bleeding 3 weeks post-C section. The patient underwent a section on 06/15/2016. Surgery was uncomplicated with history of pelvic adhesions. She, however, did well postop and was discharged home on day #3. She has since been experiencing some vaginal bleeding, but was mild. Today, the patient reports while she experienced a sudden gush of bright red vaginal bleeding, she called the ambulance and was brought to the Emergency Room. On arrival at the Emergency Room, she had no shortness of breath, no chills and no fever. She has not had another episode of bleeding since. She has minimal vaginal bleeding at the moment. The patient had a CBC on arrival which showed a hemoglobin of 14. Ultrasound done also showed a possible hematoma in the uterus and no retained products of conception as seen in the uterus on ultrasound. The patient's blood pressure is stable. She is not tachycardic. The patient is completely asymptomatic in the ER. PAST MEDICAL HISTORY: 1. History of epilepsy. 2. History of Hodgkin's carcinoma of the abdomen. PAST SURGICAL HISTORY: History of appendectomy. SOCIAL HISTORY: The patient denies tobacco, drug or alcohol use. PHYSICAL EXAMINATION: GENERAL: Well-developed and well-nourished white female, in no acute distress. HEART: S1, S2, regular rhythm and rate. LUNGS: Clear to auscultation bilaterally. ABDOMEN: Nontender and nondistended. incision is well healed. PELVIC: Very minimal vaginal bleeding at this moment. VITAL SIGNS: Temperature 37.0, pulse 65, respirations 20 and blood pressure LABORATORY DATA: White count is 9.7, hemoglobin is 14.6, hematocrit is 43.3 and platelets are 427,000. Complete chemistries unremarkable as well. Ultrasound showed a possible hematoma in the uterus. No products of conception are seen in the uterus. ASSESSMENT AND PLAN: Status post section on 06/15/2016. The patient experienced sudden vaginal bleeding. The patient is presently stable. Ultrasound, however, showed she may still have some hematomas in the uterus. Plan therefore is to admit the patient and treat her with some uterotonics and observe patient overnight. The patient has agreed to the plan as described above. JASON
[2016-07-05] MEDS: IBUPROFEN 600 MG TAB PO PRN (22:22)
[2016-07-06] VITALS: BP 113/78; PULSE 72; TEMP 37; O2SAT 97
[2016-07-06] MEDS ORDERED: NURSING VERBAL MED ORDER ONE ×2 (03:45→07:15)
[2016-07-06] MEDS: IBUPROFEN 600 MG TAB PO PRN ×2 (04:06→08:43)
[2016-07-06] MEDS: OXYTOCIN INJ 20 UNITS in LACTATED RINGER'S 1000ML 1,000 ML IV SCH (04:09)
[2016-07-06 04:10] VITALS: BP 119/76; PULSE 83; TEMP 37.1; O2SAT 97
[2016-07-06 07:10] LABS: HEMATOCRIT 39.2 % (37-47); MEAN CELL VOLUME 91.8 fL (80-100); MEAN CORPUSCULAR HEMOGLOBIN 30.7 pg (25-34); MEAN CORPUSCULAR HGB CONC 33.4 g/dl (32-36); MEAN PLATELET VOLUME 9.2 fL (7.4-10.4); PLATELET COUNT 364 K/uL (130-400); RED BLOOD COUNT 4.27 M/uL (4.2-5.4); WHITE BLOOD COUNT 6.73 K/uL (4.8-10.8)
[2016-07-06 08:15] VITALS: BP 106/67; PULSE 78; TEMP 37.1
[2016-07-06] MEDS: DOCUSATE SODIUM 100 MG CAP PO SCH (08:44)
[2016-07-06] MEDS ORDERED: MAGNESIUM OXIDE 400 MG TAB PO SCH (09:00)
[2016-07-06] MEDS ORDERED: LEVETIRACETAM 500 MG TAB PO SCH (09:00)
[2016-07-06] MEDS ORDERED: PRENATAL VITAMIN TAB PO SCH (09:00)
--- NOTE | 2016-07-06 09:29 | Discharge Instructions ---
Discharge Instructions Date of Service Jul 06, 2016. Admission Reason for Admission: Hemorrhage, Condition Discharge Discharge Diagnosis / Problem: hemorrhage Discharge Goals Goal(s): Routine recovery after Activity Recommendations Activity Limitations: per Instructions/Follow-up section . Instructions / Follow-Up Instructions / Follow-Up ACTIVITY RECOMMENDATIONS: * Gradual return to full activity over the next 2-3 weeks. * No lifting - nothing heavier than baby over the next 2-3 weeks. * Do not engage in vigorous exercise, sexual activity or sports until cleared by your physician. * Do not drive or operate any motorized equipment until cleared by your physician. * You may shower/bathe daily. BREAST CARE: If you are not breast feeding: * Wear a supportive bra 24 hours a day for one to two weeks. * Avoid stimulating your breasts and nipples as much as possible during the first few weeks after delivery. * When taking a shower, have the warm water hit your back, not breasts. * When your breasts feel full, apply ice packs. Usually three to four times a day helps ease the discomfort. * Take a mild pain medication (Tylenol/Motrin) when you are uncomfortable. If breast feeding: * Use breast milk to lubricate nipples. Lansinoh cream may be used for sore nipples. You do not need to remove cream prior to breast feeding. If using a different brand of cream, check the label for directions regarding removal of cream prior to nursing. * Wear a supportive bra. * If having problems with breasts or breast feeding, call a service loss control consultant or your health care provider. OVER THE COUNTER MEDICATION: * For discomfort or pain, you may use Acetaminophen (Tylenol), Ibuprofen (Advil ), or Naproxen (Aleve) following the package directions. * For constipation you may use Colace following the package directions. SPECIAL CARE INSTRUCTIONS: When you are discharged from the hospital, it is important for you to follow the instructions listed below: * During the first week at home, you should be able to care for yourself and your baby. In addition, the usual light household activities are encouraged. * Limit your activities to the way you feel. Do not try to clean the house or move furniture. Be sensible. * If you actively engage in sports and have done so up until the time of your delivery, you may resume these activities as soon as you feel able. This may take up to one month or even longer. Use good judgment. * Continue to take your vitamins for at least six weeks after the of your baby. * Your diet need not be limited unless you were on a special diet before your delivery. Breast-feeding mothers need around 2500 calories per day and at least 64-80 ounces of fluid per day (8 to 10 glasses). * You should eat foods from the four major food groups. Crash diets or fad diets are to be avoided. Eating lean meats, fresh fruits and vegetables, low-fat dairy products, high fiber foods and a regular exercise program, will help you get back to your pre- weight without putting your health at risk. * Constipation is sometimes a problem after delivery. Take a mild laxative as needed. If breast feeding, Milk of Magnesia is acceptable to use. You may use a suppository or Fleets enema if no episiotomy. * A daily shower or tub bath is suggested. Be sure to thoroughly and gently dry the perineum. * A bloody vaginal discharge will usually continue until around four weeks post . A small amount of bleeding may continue for as long as six weeks. Vaginal discharge changes from the bright red bleeding after delivery to pink then brownish and finally yellowish-pink before becoming white and disappearing. * Bleeding may increase with activity. Your first period may come in 4-8 weeks. If you are breast feeding, your period may be delayed even longer. * [place] (sex) can begin whenever both you and your partner feel comfortable and do not have any form of genital infection. It is recommended that you wait at least six weeks for internal and external healing to occur. If you have questions, please talk to your health care practitioner. A condom should be used to prevent infection and . * Foreplay, gentle intercourse and lubrication is very important the first several times to prevent pain. A water-based lubricant such as K-Y jelly or Astroglide may be used. * Tampons and/or Douching should be avoided until after six weeks check-up. * If you have RH negative blood and your baby is RH positive, you will receive RHOGAM by injection prior to discharge. The nurse will give you a card to keep with you that has the date and place that you received RHOGAM after delivery. * During your care, you had a Rubella screen done to check for the presence of rubella antibodies in your blood. If your test was negative, you will receive a Rubella vaccine prior to discharge. This vaccine may cause a fever, soreness at the injection site and flu-like symptoms. If these symptoms persist, notify your health care practitioner. is not advised for three months after a Rubella vaccine. * Verbalizes understanding of car seat law as reviewed with patient nursing. * Car Seat hand-out given and reviewed with patient by nursing. * Shaken baby information reviewed with patient by nursing. Call you doctor if: * Heavy bleeding (saturating several pads an hour) or passing clots the size of your fist. * A fever >101 degrees F (38.3 degrees C) on two occasions four hours apart and /or chills. * Unusual pain in the pelvic or vaginal areas. Pain should improve each day . * Call the doctor for any increased redness, drainage or swelling around the incision and any pain unrelieved by prescribed pain medication. * Any signs or symptoms of phlebitis (possible blood clots forming in the veins ): leg pain, warm, red or swollen area on leg. * "Baby Blues" lasting longer than two weeks. If you have any questions or concerns, call your health care practitioner at . FOLLOW-UP VISIT: * Incision check (staple removal) in 1 week. Please call doctor's office at to set up appointment. * Please call the office at to schedule a 6 week examination. It is important you keep this appointment. * It is important for you to make arrangements for either yearly or twice yearly check-ups thereafter. Current Hospital Diet Patient's current hospital diet: Regular OB Diet Discharge Diet Recommended Diet: Regular OB Diet Pending Studies Studies pending at discharge: no Medical Emergencies . Who to Call and When: Medical Emergencies: If at any time you feel your situation is an emergency, please call [phone] immediately. . Non-Emergent Contact Non-Emergency issues call your: [employer] . . "Provider Documentation" section prepared by Randolph Heath. . VTE Core Measure Inpt VTE Proph given/why not?: Treatment not indicated
--- NOTE | 2016-07-06 09:33 | Progress Note ---
Subjective Date of Service: Jul 06, 2016. Subjective Pt evaluation today including: conversation w/ patient, physical exam Pain: 0/10 PO Intake: Regular diet Voiding: no voiding problems Doing much better today. Bleeding is minimal. Has no pain. ok. Tolerating regular diet. Ambulating without assistance. Would like to go home today. Problem List Medical Problems: (1) Abnormal vaginal bleeding Status: Acute Objective Vital Signs Date Time Temp Pulse Resp B/P Pulse Ox O2 Delivery O2 Flow Rate FiO2 07/06/16 08:15 Room Air 07/06/16 08:15 37.1 78 18 106/67 Room Air 07/06/16 04:10 37.1 83 16 119/76 97 Room Air 07/06/16 00:00 37.0 72 16 113/78 97 Room Air 07/06/16 00:00 97 Room Air 07/05/16 21:00 36.7 66 18 125/81 99 Room Air 07/05/16 20:10 68 19 141/86 97 Room Air 07/05/16 18:15 68 20 117/69 96 Room Air 07/05/16 17:27 65 20 117/69 96 Room Air 07/05/16 15:57 37.0 74 20 101/81 98 Room Air 07/05/16 15:54 100 Nasal Cannula 2.0 Physical Exam General Appearance: WD/WN, no apparent distress Respiratory/Chest: chest non-tender, lungs clear Cardiovascular: regular rate, rhythm Abdomen: normal bowel sounds, soft Extremities: normal range of motion, non-tender, no calf tenderness Neurologic/Psychiatric: alert, oriented x 3 Laboratory Results Last 24 Hours Test 07/05/16 14:28 07/05/16 16:27 07/05/16 17:20 07/06/16 06:40 White Blood Count 9.17 K/uL 6.73 K/uL Red Blood Count 4.77 M/uL 4.27 M/uL Hemoglobin 14.6 g/dL 13.1 g/dL Hematocrit 43.3 % 39.2 % Mean Corpuscular Volume 90.8 fL 91.8 fL Mean Corpuscular Hemoglobin 30.6 pg 30.7 pg Mean Corpuscular Hemoglobin Concent 33.7 g/dl 33.4 g/dl Platelet Count 427 K/uL 364 K/uL Mean Platelet Volume 9.5 fL 9.2 fL Neutrophils (%) (Auto) 64.2 % Lymphocytes (%) (Auto) 22.5 % Monocytes (%) (Auto) 8.9 % Eosinophils (%) (Auto) 3.3 % Basophils (%) (Auto) 0.9 % Neutrophils # (Auto) 5.89 K/uL Lymphocytes # (Auto) 2.06 K/uL Monocytes # (Auto) 0.82 K/uL Eosinophils # (Auto) 0.30 K/uL Basophils # (Auto) 0.08 K/uL RDW Standard Deviation 43.6 fL 43.9 fL RDW Coefficient of Variation 13.1 % 13.2 % Immature Granulocyte % (Auto) 0.2 % Immature Granulocyte # (Auto) 0.02 K/uL Prothrombin Time 10.5 SECONDS Prothromb Time International Ratio 1.0 Activated Partial Thromboplast Time 27.5 SECONDS Partial Thromboplastin Ratio 1.1 Sodium Level 141 mmol/L Potassium Level 4.0 mmol/L Chloride Level 106 mmol/L Carbon Dioxide Level 28 mmol/L Anion Gap 7.0 mmol/L Blood Urea Nitrogen 18 mg/dl Creatinine 0.88 mg/dl Est Creatinine Clear Calc Drug Dose 94.6 ml/min Estimated GFR () 96.6 Estimated GFR (Non- 83.3 BUN/Creatinine Ratio 20.4 Random Glucose 70 mg/dl Calcium Level 9.1 mg/dl Total Bilirubin 0.3 mg/dl Aspartate Amino Transf (AST/SGOT) 19 U/L Alanine Aminotransferase (ALT/SGPT) 37 U/L Alkaline Phosphatase 92 U/L Total Protein 7.7 gm/dl Albumin 3.4 gm/dl Globulin 4.3 gm/dl Albumin/Globulin Ratio 0.8 Human Chorionic Gonadotropin, Qual NEG Urine Color ORANGE Urine Appearance TURBID Urine pH 6.0 Urine Specific [place] 1.012 Urine Protein 1+ Urine Glucose (UA) NEG Urine Ketones NEG Urine Occult Blood 3+ Urine Nitrite NEG Urine Bilirubin NEG Urine Urobilinogen NEG Urine Leukocyte Esterase LARGE Urine WBC (Auto) >30 /hpf Urine RBC (Auto) >30 /hpf Urine Hyaline Casts (Auto) 5-10 /lpf Urine Epithelial Cells (Auto) 5-10 /lpf Urine Bacteria (Auto) NEG Urine Yeast (Auto) Urine Test NEG Assessment and Plan hemorrhage, s/p section 3 weeks ago. -Bleeding minimal, s/p pitocin and oral cytotec -H&H stable -D/C home today -F/U in office.
[2016-07-06 09:45] VITALS: BP 106/67; PULSE 78; TEMP 37.1; O2SAT 97
--- NOTE | 2016-07-21 07:45 | Discharge Summary ---
Discharge Summary Date of Service July 21, 2016. Discharge Summary Admission Date: Jul 05, 2016 at 20:10 Discharge Date: Jul 06, 2016 Discharge Disposition: Home Principal Diagnosis: S/P section, delayed hemorrhage Medication Reconciliation Continued Medications: Cholecalciferol (Vitamin D3) 1,000 Unit Tab 1000 INTER.UNIT PO QAM, TAB Escitalopram (Lexapro) 10 Mg Tab 10 MG PO DAILY, TAB Ibuprofen (Motrin) 600 Mg Tab 600 MG PO Q4H PRN for REEDER/Pain/Cramping or Fever, TAB TAKE THIS MEDICATION WITH FOOD Levetiracetam (Keppra) 500 Mg Tab 1000 MG PO BID, TAB Magnesium Oxide (Mag-Ox) 400 Mg Tab 400 MG PO BID, TAB Multivit/Min/Iron/Fol Ac/Pren ( Vitamin) Tab 1 TAB PO QAM, TAB Oxycodone/Acetaminophen 5MG/325MG (Percocet 5MG/325MG) Tab 1 TABLET PO Q4H PRN for Pain, TAB Admission Information HPI (per Admitting provider): HISTORY OF PRESENT ILLNESS: This is a 40-year-old, who presented to the Emergency Room today with vaginal bleeding 3 weeks post-C section. The patient underwent a section on 06/15/2016. Surgery was uncomplicated with history of pelvic adhesions. She, however, did well postop and was discharged home on day #3. She has since been experiencing some vaginal bleeding, but was mild. Today, the patient reports while she experienced a sudden gush of bright red vaginal bleeding, she called the ambulance and was brought to the Emergency Room. On arrival at the Emergency Room, she had no shortness of breath, no chills and no fever. She has not had another episode of bleeding since. She has minimal vaginal bleeding at the moment. The patient had a CBC on arrival which showed a hemoglobin of 14. Ultrasound done also showed a possible hematoma in the uterus and no retained products of conception as seen in the uterus on ultrasound. The patient's blood pressure is stable. She is not tachycardic. The patient is completely asymptomatic in the ER. Physical Exam (per Admitting): GENERAL: Well-developed and well-nourished white female, in no acute distress. HEART: S1, S2, regular rhythm and rate. LUNGS: Clear to auscultation bilaterally. ABDOMEN: Nontender and nondistended. incision is well healed. PELVIC: Very minimal vaginal bleeding at this moment. VITAL SIGNS: Temperature 37.0, pulse 65, respirations 20 and blood pressure Hospital Course Patient was given uterotonics via pitocin and cytotec. She was observed overnight with minimal vaginal bleeding noted. Her hgb remained stable and was discharged on hospital day # 1 with follow up arranged in the office. Total time spent on discharge = 15 mins This includes examination of the patient, discharge planning, medication reconciliation, and communication with other providers. Discharge Instructions Instructions / Follow-Up ACTIVITY RECOMMENDATIONS: * Gradual return to full activity over the next 2-3 weeks. * No lifting - nothing heavier than baby over the next 2-3 weeks. * Do not engage in vigorous exercise, sexual activity or sports until cleared by your physician. * Do not drive or operate any motorized equipment until cleared by your physician. * You may shower/bathe daily. BREAST CARE: If you are not breast feeding: * Wear a supportive bra 24 hours a day for one to two weeks. * Avoid stimulating your breasts and nipples as much as possible during the first few weeks after delivery. * When taking a shower, have the warm water hit your back, not breasts. * When your breasts feel full, apply ice packs. Usually three to four times a day helps ease the discomfort. * Take a mild pain medication (Tylenol/Motrin) when you are uncomfortable. If breast feeding: * Use breast milk to lubricate nipples. Lansinoh cream may be used for sore nipples. You do not need to remove cream prior to breast feeding. If using a different brand of cream, check the label for directions regarding removal of cream prior to nursing. * Wear a supportive bra. * If having problems with breasts or breast feeding, call a medical social consultant or your health care provider. OVER THE COUNTER MEDICATION: * For discomfort or pain, you may use Acetaminophen (Tylenol), Ibuprofen (Advil ), or Naproxen (Aleve) following the package directions. * For constipation you may use Colace following the package directions. SPECIAL CARE INSTRUCTIONS: When you are discharged from the hospital, it is important for you to follow the instructions listed below: * During the first week at home, you should be able to care for yourself and your baby. In addition, the usual light household activities are encouraged. * Limit your activities to the way you feel. Do not try to clean the house or move furniture. Be sensible. * If you actively engage in sports and have done so up until the time of your delivery, you may resume these activities as soon as you feel able. This may take up to one month or even longer. Use good judgment. * Continue to take your vitamins for at least six weeks after the of your baby. * Your diet need not be limited unless you were on a special diet before your delivery. Breast-feeding mothers need around 2500 calories per day and at least 64-80 ounces of fluid per day (8 to 10 glasses). * You should eat foods from the four major food groups. Crash diets or fad diets are to be avoided. Eating lean meats, fresh fruits and vegetables, low-fat dairy products, high fiber foods and a regular exercise program, will help you get back to your pre- weight without putting your health at risk. * Constipation is sometimes a problem after delivery. Take a mild laxative as needed. If breast feeding, Milk of Magnesia is acceptable to use. You may use a suppository or Fleets enema if no episiotomy. * A daily shower or tub bath is suggested. Be sure to thoroughly and gently dry the perineum. * A bloody vaginal discharge will usually continue until around four weeks post . A small amount of bleeding may continue for as long as six weeks. Vaginal discharge changes from the bright red bleeding after delivery to pink then brownish and finally yellowish-pink before becoming white and disappearing. * Bleeding may increase with activity. Your first period may come in 4-8 weeks. If you are breast feeding, your period may be delayed even longer. * Aynor (sex) can begin whenever both you and your partner feel comfortable and do not have any form of genital infection. It is recommended that you wait at least six weeks for internal and external healing to occur. If you have questions, please talk to your health care practitioner. A condom should be used to prevent infection and . * Foreplay, gentle intercourse and lubrication is very important the first several times to prevent pain. A water-based lubricant such as K-Y jelly or Astroglide may be used. * Tampons and/or Douching should be avoided until after six weeks check-up. * If you have RH negative blood and your baby is RH positive, you will receive RHOGAM by injection prior to discharge. The nurse will give you a card to keep with you that has the date and place that you received RHOGAM after delivery. * During your care, you had a Rubella screen done to check for the presence of rubella antibodies in your blood. If your test was negative, you will receive a Rubella vaccine prior to discharge. This vaccine may cause a fever, soreness at the injection site and flu-like symptoms. If these symptoms persist, notify your health care practitioner. is not advised for three months after a Rubella vaccine. * Verbalizes understanding of car seat law as reviewed with patient nursing. * Car Seat hand-out given and reviewed with patient by nursing. * Shaken baby information reviewed with patient by nursing. Call you doctor if: * Heavy bleeding (saturating several pads an hour) or passing clots the size of your fist. * A fever >101 degrees F (38.3 degrees C) on two occasions four hours apart and /or chills. * Unusual pain in the pelvic or vaginal areas. Pain should improve each day . * Call the doctor for any increased redness, drainage or swelling around the incision and any pain unrelieved by prescribed pain medication. * Any signs or symptoms of phlebitis (possible blood clots forming in the veins ): leg pain, warm, red or swollen area on leg. * "Baby Blues" lasting longer than two weeks. If you have any questions or concerns, call your health care practitioner at . FOLLOW-UP VISIT: * Incision check (staple removal) in 1 week. Please call doctor's office at to set up appointment. * Please call the office at to schedule a 6 week examination. It is important you keep this appointment. * It is important for you to make arrangements for either yearly or twice yearly check-ups thereafter. Current Hospital Diet Patient's current hospital diet: Regular OB Diet Discharge Diet Recommended Diet: Regular OB Diet Pending Studies Studies pending at discharge: no Medical Emergencies . Who to Call and When: Medical Emergencies: If at any time you feel your situation is an emergency, please call 911 immediately. . Non-Emergent Contact Non-Emergency issues call your: [employer]
[2016-07-26] MEDS ORDERED: IBUP-1450 PO (08:42)
[2016-07-26] MEDS ORDERED: OXYC-57 PO (08:42)
[2016-07-26] MEDS ORDERED: CEPH-570 PO (08:57)
== END 2016-07-06 10:00 | disposition home or self-care (01) ==
LOC: ENRESERVTM → ENRESERVDT → EDBD 15:25 → C.EDC 15:31 → C.MS4N 20:10 → UNDODISOB 07-06 10:00
PROVIDERS: ADMIT Obstetrics & Gynecology; ATTEND Obstetrics & Gynecology
DX: O72.2 Delayed and secondary postpartum hemorrhage (principal); N93.9 Abnormal uterine and vaginal bleeding, unspecified; G40.909 Epilepsy, unspecified, not intractable, without status epilepticus; Z90.89 Acquired absence of other organs; Z80.9 Family history of malignant neoplasm, unspecified; Z83.3 Family history of diabetes mellitus; Z82.49 Family history of ischemic heart disease and other diseases of the circulatory system; Z82.0 Family history of epilepsy and other diseases of the nervous system; Z79.899 Other long term (current) drug therapy; Z88.2 Allergy status to sulfonamides; Z91.040 Latex allergy status

== ENCOUNTER 2016-07-16 10:54 | Emergency (ER) | payer BC ==
[~2016-07-16] VITALS: Ht 167.6 cm; Wt 87.3 kg
[~2016-07-16 10:54] MED LIST changes: +ESCI10TA17 PO; +IBUP-1450 PO; -LEVE250T PO; +LEVE500T13 PO; -LXP10 PO; -MTR600X PO; +PRENTAB26 PO
[2016-07-16 11:01] VITALS: TEMP 36.5; Ht 167.6 cm; Wt 87.3 kg
[2016-07-16] MEDS ORDERED: SODIUM CHLORIDE 0.9% 1000ML 1,000 ML IV STA ×2 (11:47→16:32)
--- NOTE | 2016-07-16 11:55 | EMERGENCY ROOM VISIT NOTE ---
History First contact with patient: 11:32 Chief Complaint: ED VAG BLEEDING Stated Complaint: EXTREME POST , VAGINAL BLEEDING History of Present Illness The patient is a 40 year old female who presents to the Emergency Room with complaints of vaginal bleeding. The patient is a G 10 P3 female. The patient had a 4 weeks ago. The patient has had hemorrhage. She was admitted last week for Pitocin and Cytotec. She states that the bleeding had significantly diminished until last night. She states she began passing clots. She states that the bleeding is not as heavy as when she was admitted but she has had to change a pad every few hours. She contacted [facility] this morning and was referred to the emergency department. She states that she just has begun to develop dizziness in the last 30 minutes. She reports cramping in the lower abdomen. She rates her discomfort a 5/10. She denies any fevers. She denies any pain in her chest or trouble breathing. She denies any diarrhea. The patient states that she has had hemorrhoids with her previous births. 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 She states that her sister has also had multiple miscarriages. She states that she has never been evaluated for underlying coagulopathy. She states that her sister has been evaluated and nothing was found. Review of Systems A 10 system review of systems was completed with positives and pertinent negatives listed in the HPI. Past Medical/Surgical History Medical Problems: (1) Epilepsy (2) Hodgkin's granuloma of abdomen (3) PCOS (polycystic ovarian syndrome) (4) hemorrhage (5) hemorrhage, condition (6) uterine contractions in third trimester, antepartum (7) RULE OUT RUPTURED MEMBRANES 34 WEEKS (8) RULE OUT RUPTURED MEMBRANES 34 WEEKS Surgical Problems: (1) History of appendectomy Family History Cancer Diabetes mellitus Heart disease Hypertension Seizures Social History Smoking Status: Never Smoker Alcohol Use: none Marital Status: Housing Status: lives with family Occupation Status: employed Current/Historical Medications Scheduled Cholecalciferol (Vitamin D3), 1,000 INTER.UNIT PO QAM Escitalopram (Lexapro), 10 MG PO DAILY Levetiracetam (Keppra), 1,000 MG PO BID Magnesium Oxide (Mag-Ox), 400 MG PO BID Multivit/Min/Iron/Fol Ac/Pren ( Vitamin), 1 TAB PO QAM Scheduled PRN Ibuprofen (Motrin), 600 MG PO Q4H PRN for REEDER/Pain/Cramping or Fever Oxycodone/Acetaminophen 5MG/325MG (Percocet 5MG/325MG), 1 TABLET PO Q4H PRN for Pain Allergies Coded Allergies: Estrogens (Verified Allergy, Severe, MIGRAINES THEN SEIZURE, 06/15/16) Zonisamide (Verified Allergy, Severe, DIFFICULTY BREATHING, 06/15/16) Clonazepam (Verified Allergy, Intermediate, RASH, 06/15/16) Phenytoin (Verified Allergy, Intermediate, RASH, FEVER, 06/15/16) Carbamazepine (Verified Allergy, Unknown, RASH, 06/15/16) Lamotrigine (Verified Allergy, Unknown, RASH SOB, 06/15/16) Latex1 -Allergic Contact Dermititis (Verified Allergy, Unknown, `, 06/15/16) Nickel (Verified Allergy, Unknown, RASH WITH NICKEL, GOLD, STAINLESS STEEL , 06/15/16) Sulfa Drugs (Verified Allergy, Unknown, HIVES, 06/15/16) Sulfonylureas (Verified Allergy, Unknown, HIVES, 06/15/16) Physical Exam Vital Signs Date Time Temp Pulse Resp B/P Pulse Ox O2 Delivery O2 Flow Rate FiO2 07/16/16 18:29 81 20 125/72 98 Room Air 85 145/92 07/16/16 17:11 90 18 114/71 93 Room Air 07/16/16 15:23 74 20 100/79 97 Room Air 07/16/16 15:09 69 115/71 70 115/81 77 100/79 07/16/16 13:30 88 20 109/71 97 Room Air 07/16/16 12:32 72 18 112/63 96 Room Air 78 103/75 86 106/74 07/16/16 12:27 85 20 106/74 97 Room Air 07/16/16 11:01 36.5 83 18 118/80 96 Room Air Physical Exam VITALS: Vitals are noted on the nurse's note and reviewed by myself. Vital signs stable. GENERAL: This is a 40-year-old female, in no acute distress, nondiaphoretic, well-developed well-nourished. SKIN: The skin was without rashes, erythema, edema, or bruising. There is no tenting of the skin. Capillary reflex less than 2 seconds. HEAD: Normocephalic atraumatic. EARS: The external ears are normal in appearance. EYES: Pupils equal round and reactive to light and accommodation. Conjunctivae without injection, sclerae without icterus. Extraocular movements intact. NOSE: Patent, turbinates without inflammation or discharge. MOUTH: Mucous membranes moist. Tonsils are not enlarged. Pharynx without erythema or exudate. Uvula midline. Airway patent. Tongue does not deviate. NECK: Supple without nuchal rigidity. No lymphadenopathy. No thyromegaly. Cervical spine is nontender. No JVD. HEART: Regular rate and rhythm without murmurs gallops or rubs. LUNGS: Clear to auscultation bilaterally without wheezes, rales or rhonchi. No retractions or accessory muscle use. ABDOMEN: Positive bowel sounds x 4. The uterus is palpable at the umbilicus. Soft, mild diffuse tenderness , without masses or organomegaly. Phipps sign negative. : The external genitalia is normal in appearance. There is moderate vaginal bleeding with clots. MUSCULOSKELETAL: No muscle atrophy, erythema, or edema noted. Full range of motion in all extremities. No tenderness to palpation. Normal gait. Strength 5/5 throughout. NEURO: Patient was alert and oriented to person place and time. N No focal neurological deficits. Medical Decision & Procedures Laboratory Results 07/16/16 15:54 Red Blood Count 4.54, Mean Corpuscular Volume 89.9, Mean Corpuscular Hemoglobin 30.4, Mean Corpuscular Hemoglobin Concent 33.8, Mean Platelet Volume 8.9, Neutrophils (%) (Auto) 59.8, Lymphocytes (%) (Auto) 27.0, Monocytes (%) (Auto) 8.0, Eosinophils (%) (Auto) 4.2, Basophils (%) (Auto) 0.7, Neutrophils # (Auto) 4.26, Lymphocytes # (Auto) 1.92, Monocytes # (Auto) 0.57, Eosinophils # (Auto) 0.30, Basophils # (Auto) 0.05 07/16/16 12:05 Test 07/16/16 12:05 07/16/16 13:05 07/16/16 15:54 Prothrombin Time 10.5 SECONDS (9.0-12.0) Prothromb Time International Ratio 1.0 (0.9-1.1) Activated Partial Thromboplast Time 28.0 SECONDS (21.0-31.0) Partial Thromboplastin Ratio 1.1 Anion Gap 6.0 mmol/L (3-11) Est Creatinine Clear Calc Drug Dose 96.4 ml/min Estimated GFR () 96.6 Estimated GFR (Non- 83.3 BUN/Creatinine Ratio 13.1 (10-20) Calcium Level 9.4 mg/dl (8.5-10.1) Total Bilirubin 0.5 mg/dl (0.2-1) Aspartate Amino Transf (AST/SGOT) 20 U/L (15-37) Alanine Aminotransferase (ALT/SGPT) 46 U/L (12-78) Alkaline Phosphatase 99 U/L (45-117) Total Protein 7.9 gm/dl (6.4-8.2) Albumin 3.4 gm/dl (3.4-5.0) Globulin 4.5 gm/dl (2.5-4.0) Albumin/Globulin Ratio 0.8 (0.9-2) Urine Color RED Urine Appearance CLOUDY (CLEAR) Urine pH (4.5-7.5) Urine Specific [place] 1.006 (1.000-1.030) Urine Protein POS (NEG) Urine Glucose (UA) (NEG) Urine Ketones (NEG) Urine Occult Blood (NEG) Urine Nitrite (NEG) Urine Bilirubin (NEG) Urine Urobilinogen (NEG) Urine Leukocyte Esterase (NEG) Urine RBC >30 /hpf (0-4) Urine WBC >30 /hpf (0-5) Urine Epithelial Cells >30 /lpf (0-5) Urine Bacteria NEG (NEG) White Blood Count 7.12 K/uL (4.8-10.8) Red Blood Count 4.54 M/uL (4.2-5.4) Hemoglobin 13.8 g/dL (12.0-16.0) Hematocrit 40.8 % (37-47) Mean Corpuscular Volume 89.9 fL (80-100) Mean Corpuscular Hemoglobin 30.4 pg (25-34) Mean Corpuscular Hemoglobin Concent 33.8 g/dl (32-36) Platelet Count 358 K/uL (130-400) Mean Platelet Volume 8.9 fL (7.4-10.4) Neutrophils (%) (Auto) 59.8 % Lymphocytes (%) (Auto) 27.0 % Monocytes (%) (Auto) 8.0 % Eosinophils (%) (Auto) 4.2 % Basophils (%) (Auto) 0.7 % Neutrophils # (Auto) 4.26 K/uL (1.4-6.5) Lymphocytes # (Auto) 1.92 K/uL (1.2-3.4) Monocytes # (Auto) 0.57 K/uL (0.11-0.59) Eosinophils # (Auto) 0.30 K/uL (0-0.5) Basophils # (Auto) 0.05 K/uL (0-0.2) RDW Standard Deviation 43.1 fL (36.4-46.3) RDW Coefficient of Variation 13.0 % (11.5-14.5) Immature Granulocyte % (Auto) 0.3 % Immature Granulocyte # (Auto) 0.02 K/uL (0.00-0.02) Medications Administered Medications (Trade) Dose Ordered Sig/Dank Route Start Time Stop Time Status Last Admin Dose Admin Sodium Chloride 1,000 ml @ 999 mls/hr Q1H1M STAT IV 07/16/16 11:47 07/16/16 12:47 DC 07/16/16 12:40 999 MLS/HR Sodium Chloride (Nss 1000ml) 1,000 ml @ 999 mls/hr Q1H1M STAT IV 07/16/16 16:32 07/16/16 17:32 DC 07/16/16 16:56 999 MLS/HR ED Course The patient was seen and examined. Previous visits were reviewed. The patient does not have a fever. She does not have a leukocytosis. Her initial hemoglobin was 15. Repeat hemoglobin approximately 4 hours later was 13.8. She does not have any significant electrolyte abnormalities. INR was 1.0. Urinalysis suggests contamination. The patient did recently receive Rhogam Ultrasound was obtained. The endometrial stripe is not thickened. The hematoma has actually decreased in size. The patient was hydrated with 2 L of normal saline. The patient presents to the emergency department with vaginal bleeding. I did perform a pelvic examination and she has moderate active bleeding with a small amount of clots. The initial hemoglobin is stable at 15. However, the patient was slightly orthostatic and was dizzy upon standing. The patient was hydrated with 1 L of normal saline and her hemoglobin was rechecked. It was found to be 13.8. This may be in some degree due to dilution but certainly blood loss anemia is considered. I discussed the case with Dr. Heath he recommends an Aygestin taper. He did evaluate the patient in the emergency department. He felt that she is stable for discharge. Given that the patient still seems slightly symptomatic, she was given another 1 L of normal saline. Orthostatic vital signs were rechecked and her blood pressure seemed to be very stable and had increased. The patient was very anxious to be discharged. She did not want to stay in the hospital if she did not have to. She was given a prescription for the Aygestin taper. She should return to the emergency department immediately with any worsening symptoms. Otherwise, she should follow-up with [facility] on Tuesday. The case was discussed with Dr. Rodriguez who agrees with the assessment and plan. Medical Decision DIFFERENTIAL DIAGNOSIS: Pelvic inflammatory disease, ovarian cyst, ovarian torsion, ovarian rupture, , ectopic , endometriosis, endometritis, urinary tract infection, ruptured ovarian cyst, tubo-ovarian abscess, among others. Impression Primary Impression: hemorrhage Departure Information Dispostion Home / Self-Care Condition GOOD Referrals No Doctor, Assigned (PCP) Randolph Heath ., DO Patient Instructions [facility] Additional Instructions Return with worsening bleeding, lightheadedness, dizziness or generalized worsening symptoms Otherwise, recheck with [facility] on Tuesday Aygestin as prescribed Problem Qualifiers Primary Impression: hemorrhage
[2016-07-16 12:15] LABS: BASO % 0.8 %; BASO ABS # 0.07 K/uL (0-0.2); COMPLETE YES; HEMATOCRIT 44.2 % (37-47); IG% 0.2 %; LYMPH % 21.4 %; LYMPH ABS # 1.88 K/uL (1.2-3.4); MEAN CELL VOLUME 89.3 fL (80-100); MEAN CORPUSCULAR HEMOGLOBIN 30.3 pg (25-34); MEAN CORPUSCULAR HGB CONC 33.9 g/dl (32-36); MEAN PLATELET VOLUME 8.9 fL (7.4-10.4); MONO % 6.8 %; NEUT % 67.8 %; PLATELET COUNT 399 K/uL (130-400); RED BLOOD COUNT 4.95 M/uL (4.2-5.4)
[2016-07-16 12:23] LABS: PARTIAL THROMBOPLASTIN RATIO 1.1; PROTHROMBIN TIME (PATIENT) 10.5 SECONDS (9.0-12.0)
[2016-07-16 12:44] LABS: BUN/CREATININE RATIO 13.1 (10-20); CREATININE 0.88 mg/dl (0.60-1.20); POTASSIUM 4.2 mmol/L (3.5-5.1)
[2016-07-16 12:46] LABS: CALCIUM 9.4 mg/dl (8.5-10.1)
[2016-07-16 12:47] LABS: ALB/GLOB RATIO 0.8 (0.9-2)
[2016-07-16 13:40] LABS: MANUAL MICROSCOPIC REQUIRED? YES; REVIEW REQ? NO; URINE COLOR RED
[2016-07-16 13:41] LABS: SULFASALICYLIC ACID POS (NEG); URINE APPEARANCE CLOUDY (CLEAR); URINE SPECIFIC GRAVITY 1.006 (1.000-1.030)
[2016-07-16 13:46] LABS: URINE RBC >30 /hpf (0-4)
[2016-07-16 13:47] LABS: URINE BACTERIA NEG (NEG); URINE WBC >30 /hpf (0-5)
[2016-07-16 13:48] LABS: ZZUR CULT IF INDIC CLEAN CATCH YES
--- NOTE | 2016-07-16 14:20 | DIAGNOSTIC IMAGING REPORT ---
EXAMINATION: PELVIC ULTRASOUND CLINICAL HISTORY: . HEMATOMA COMPARISON STUDY: 07/05/2016 FINDINGS: The uterus measured 13 cm. The endometrial stripe measured 7 mm. The right ovary measured 2.5 cm with normal vascular flow. The left ovary measured 3.1 cm with normal vascular flow. The hematoma anterior to the bladder and mid uterine segment is moderately diminished in volume. Maximum current dimensions 5.2 cm. There was no evidence of pathologic free pelvic fluid. IMPRESSION: Improved exam. The soft tissue hematoma has diminished in size to a current maximum dimension of 5.2 cm. Electronically signed by: Ovidio Armstrong M.D. 07/16/2016 2:19 PM Dictated Date/Time: 07/16/2016 2:17 PM
[2016-07-16 16:03] LABS: BASO % 0.7 %; BASO ABS # 0.05 K/uL (0-0.2); COMPLETE YES; EOS % 4.2 %; HEMATOCRIT 40.8 % (37-47); IG% 0.3 %; LYMPH ABS # 1.92 K/uL (1.2-3.4); MEAN CELL VOLUME 89.9 fL (80-100); MEAN CORPUSCULAR HEMOGLOBIN 30.4 pg (25-34); MEAN CORPUSCULAR HGB CONC 33.8 g/dl (32-36); MEAN PLATELET VOLUME 8.9 fL (7.4-10.4); NEUT % 59.8 %; PLATELET COUNT 358 K/uL (130-400); RED BLOOD COUNT 4.54 M/uL (4.2-5.4); WHITE BLOOD COUNT 7.12 K/uL (4.8-10.8)
[2016-07-16 18:29] VITALS: BP 145/92; PULSE 85; O2SAT 98
== END 2016-07-16 18:51 | disposition home or self-care (01) ==
LOC: C.EDB 10:55 → C.EDC 18:51
DX: O72.1 Other immediate postpartum hemorrhage (principal); G40.909 Epilepsy, unspecified, not intractable, without status epilepticus; E28.2 Polycystic ovarian syndrome; Z98.890 Other specified postprocedural states; Z79.899 Other long term (current) drug therapy; Z88.2 Allergy status to sulfonamides; Z88.8 Allergy status to other drugs, medicaments and biological substances; Z80.9 Family history of malignant neoplasm, unspecified; Z83.3 Family history of diabetes mellitus; Z82.49 Family history of ischemic heart disease and other diseases of the circulatory system; Z82.0 Family history of epilepsy and other diseases of the nervous system

== ENCOUNTER 2016-07-24 18:29 | Inpatient (IN) | payer BC ==
[~2016-07-24] VITALS: Ht 167.6 cm; Wt 88.2 kg
[2016-07-24] MEDS ORDERED: MoRPHine SULFATE 4 MG/ML 1 ML CARP\\VIAL IV STA ×2 (18:45→20:02)
[2016-07-24] MEDS ORDERED: ONDANSETRON INJ 2 MG/ML 2 ML VIAL IV STA (18:45)
[2016-07-24] MEDS ORDERED: NORE5TAB5 PO (19:40)
[2016-07-24 19:56] LABS: BASO % 0.6 %; BASO ABS # 0.05 K/uL (0-0.2); COMPLETE YES; EOS % 3.2 %; HEMATOCRIT 38.5 % (37-47); IG% 0.4 %; LYMPH % 26.1 %; LYMPH ABS # 2.23 K/uL (1.2-3.4); MEAN CELL VOLUME 90.4 fL (80-100); MEAN CORPUSCULAR HEMOGLOBIN 29.3 pg (25-34); MEAN CORPUSCULAR HGB CONC 32.5 g/dl (32-36); MEAN PLATELET VOLUME 8.7 fL (7.4-10.4); MONO % 4.7 %; PLATELET COUNT 349 K/uL (130-400); RED BLOOD COUNT 4.26 M/uL (4.2-5.4); WHITE BLOOD COUNT 8.54 K/uL (4.8-10.8)
[2016-07-24 20:00] LABS: ALKALINE PHOSPHATASE 65 U/L (45-117); ALT/SGPT 39 U/L (12-78); AST/SGOT 24 U/L (15-37); BLOOD UREA NITROGEN 12 mg/dl (7-18); CALCIUM 8.7 mg/dl (8.5-10.1); CARBON DIOXIDE 24 mmol/L (21-32); CHLORIDE 108 mmol/L (98-107); CREATININE 0.78 mg/dl (0.60-1.20); GLUCOSE 80 mg/dl (70-99); POTASSIUM 4.2 mmol/L (3.5-5.1); SODIUM 142 mmol/L (136-145)
--- NOTE | 2016-07-24 20:35 | DIAGNOSTIC IMAGING REPORT ---
CT SCAN OF THE ABDOMEN AND PELVIS WITHOUT IV CONTRAST CLINICAL HISTORY: Recent section. Clinical concern for abscess. COMPARISON STUDY: Abdominal CT dated 05/21/2011. TECHNIQUE: CT scan of the abdomen and pelvis is performed from the lung bases to the proximal femora. Images are reviewed in the axial, sagittal, and coronal planes. IV contrast was not administered for this examination as per the referring clinician. Note that the examination was performed in significantly suboptimal fashion for the reported clinical history without oral and IV contrast. Automated dose control exposure was utilized. CT DOSE: 590.98 mGy.cm FINDINGS: Lung bases: The heart is normal in size and without pericardial effusion. There are trace pleural effusions and dependent atelectasis. There is a tiny hiatal hernia. Liver: The unenhanced liver is enlarged, measuring 19.5 cm in length. The liver demonstrates diffusely diminished attenuation consistent with hepatic steatosis. Fatty sparing is noted adjacent to the gallbladder fossa. There is no intrahepatic biliary ductal dilatation. Gallbladder: Unremarkable. Spleen: Normal in size and attenuation. Pancreas: Unremarkable. Adrenal glands: Unremarkable. Kidneys: The unenhanced kidneys are normal in size and without hydronephrosis. There are no renal calculi identified. There is no evidence of contour deforming renal mass lesion. A retroaortic left renal vein is incidentally noted. Abdominal vasculature: The abdominal aorta is normal in course and caliber. Bowel: The small bowel and colon are normal in course and caliber. The appendix is not identified and reported surgically absent. Peritoneum: There is no intraperitoneal free air or abdominal ascites. Lymphadenopathy: None. Pelvic viscera: The bladder is normal as visualized. The post gravid uterus appears enlarged and heterogeneous. The ovaries are normal as imaged noting bilateral follicles. Numerous calcified phleboliths are seen in the pelvis. Soft tissues: There is induration within the subcutaneous fat in the ventral pelvis. There is a defect seen within the rectus abdominal small sludge in the pelvis on axial image #30 and 54. There is ill-defined fluid in this region which measures up to 3.4 cm in length. This appears to extend into the peritoneal cavity where there is mild inflammatory stranding. Skeletal structures: No lytic or blastic lesions are seen. Mild sclerotic change is noted in the sacroiliac joints and pubic symphysis. There is degenerative disc space narrowing at L5-S1. IMPRESSION: 1. Significantly suboptimal examination without oral and IV contrast. 2. The post gravid uterus is enlarged and heterogeneous, likely related to recent gestation. 3. There is a defect between the rectus abdominis musculature in the ventral pelvis. There is nonspecific fluid identified at this site which measures up to 3.4 cm in diameter. There is mild stranding both superficial and deep to this defect which appears to extend into the peritoneal cavity. This may simply represent postoperative change and fluid/hematoma. Superimposed infection/abscess would be impossible to exclude and clinical correlation will be essential. 4. Hepatomegaly and hepatic steatosis. Electronically signed by: Tristin Whitlock M.D. 07/24/2016 8:34 PM Dictated Date/Time: 07/24/2016 8:27 PM
[2016-07-24] MEDS ORDERED: ACETAMINOPHEN 325 MG TAB PO PRN (21:30)
--- NOTE | 2016-07-24 22:03 | EMERGENCY ROOM VISIT NOTE ---
History Report prepared by Khari: Donell Brown Under the Supervision of: Dr. Jag Sotomayor M.D. First contact with patient: 18:35 Chief Complaint: WOUND DEHISCENCE Stated Complaint: SEVERE PAIN, WOUND OPENED/DRAINING History of Present Illness The patient is a 40 year old female who presents to the Emergency Room with complaints of worsening lower abdominal wound drainage beginning today. She gave by a little over a month ago (June 15). She states that she developed pain in her surgical site yesterday. Per , the patient's C- section wound opened up shortly prior to arrival and appears to be draining pus and blood. He notes that the patient had vaginal bleeding occur several weeks ago that required overnight hospitalization. The patient denies any fevers, urinary symptoms, or vomiting. She also complains of nausea. She states that she took Ibuprofen and Percocet this morning for her pain. The patient's states that the patient's wound appeared to be healing well until today. Source of History: patient, spouse/significant other () Onset: Today Position: abdomen (lower) Symptom Intensity: moderate Quality: other (drainage) Timing: worsening Associated Symptoms: + nausea, No fevers, No urinary symptoms, No vomiting Review of Systems See HPI for pertinent positives & negatives. A total of 10 systems reviewed and were otherwise negative. Past Medical & Surgical Medical Problems: (1) Epilepsy (2) Hodgkin's granuloma of abdomen (3) PCOS (polycystic ovarian syndrome) (4) hemorrhage (5) hemorrhage, condition (6) uterine contractions in third trimester, antepartum (7) RULE OUT RUPTURED MEMBRANES 34 WEEKS (8) RULE OUT RUPTURED MEMBRANES 34 WEEKS (9) Wound seroma Surgical Problems: (1) History of appendectomy Family History Cancer Diabetes mellitus Heart disease Hypertension Seizures Social History Smoking Status: Never Smoker Alcohol Use: none Marital Status: Housing Status: lives with family Occupation Status: employed Current/Historical Medications Scheduled Cholecalciferol (Vitamin D3), 1,000 INTER.UNIT PO QAM Escitalopram (Lexapro), 10 MG PO DAILY Levetiracetam (Keppra), 1,000 MG PO BID Magnesium Oxide (Mag-Ox), 400 MG PO BID Multivit/Min/Iron/Fol Ac/Pren ( Vitamin), 1 TAB PO QAM Norethindrone (Aygestin), 5 MG PO TAPER UD Scheduled PRN Ibuprofen (Motrin), 600 MG PO Q4H PRN for REEDER/Pain/Cramping or Fever Oxycodone/Acetaminophen 5MG/325MG (Percocet 5MG/325MG), 1 TABLET PO Q4H PRN for Pain Allergies Coded Allergies: Estrogens (Verified Allergy, Severe, MIGRAINES THEN SEIZURE, 07/24/16) Gadolinium (Verified Allergy, Severe, SHORTNESS OF BREATH, 07/24/16) Iodinated Diagnostic Agents (Verified Allergy, Severe, SHORTNESS OF BREATH , 07/24/16) Zonisamide (Verified Allergy, Severe, DIFFICULTY BREATHING, 07/24/16) Clonazepam (Verified Allergy, Intermediate, RASH, 07/24/16) Phenytoin (Verified Allergy, Intermediate, RASH, FEVER, 07/24/16) Carbamazepine (Verified Allergy, Unknown, RASH, 07/24/16) Lamotrigine (Verified Allergy, Unknown, RASH SOB, 07/24/16) Latex1 -Allergic Contact Dermititis (Verified Allergy, Unknown, `, 07/24/16 ) Nickel (Verified Allergy, Unknown, RASH WITH NICKEL, GOLD, STAINLESS STEEL , 07/24/16) Sulfa Drugs (Verified Allergy, Unknown, HIVES, 07/24/16) Sulfonylureas (Verified Allergy, Unknown, HIVES, 07/24/16) Physical Exam Vital Signs Date Time Temp Pulse Resp B/P Pulse Ox O2 Delivery O2 Flow Rate FiO2 07/24/16 21:10 69 18 128/76 98 Room Air 07/24/16 20:01 72 17 113/72 99 Room Air 07/24/16 19:30 67 15 119/81 98 Room Air 07/24/16 19:22 74 07/24/16 19:21 71 19 115/72 98 Room Air 07/24/16 18:32 36.7 80 20 127/76 100 Room Air Physical Exam Constitutional: Vital signs reviewed. Eyes: Pupils are equal round reactive to light. Conjunctiva are noninjected. ENT: Pharynx is clear without erythema or exudate. Mucous membranes are moist. Neck supple without meningeal signs. Respiratory: Clear to auscultation bilaterally. Breath sounds are equal bilaterally. Cardiovascular: Regular rate and rhythm. No rubs or gallops. GI: Soft, and nondistended. Bowel sounds are present. Diffuse lower abdominal tenderness. No guarding. Purulent and serous drainage from the right portion of the wound. No CVA tenderness. Musculoskeletal: No peripheral edema. No lower extremity tenderness. Integumentary: No cyanosis. Neurological: The patient is awake and alert. No focal deficits. Psychiatric: Normal affect. Medical Decision & Procedures ER Provider Diagnostic Interpretation: CT results as stated below per my review and radiologist interpretation. CT SCAN OF THE ABDOMEN AND PELVIS WITHOUT IV CONTRAST FINDINGS: Lung bases: The heart is normal in size and without pericardial effusion. There are trace pleural effusions and dependent atelectasis. There is a tiny hiatal hernia. Liver: The unenhanced liver is enlarged, measuring 19.5 cm in length. The liver demonstrates diffusely diminished attenuation consistent with hepatic steatosis. Fatty sparing is noted adjacent to the gallbladder fossa. There is no intrahepatic biliary ductal dilatation. Gallbladder: Unremarkable. Spleen: Normal in size and attenuation. Pancreas: Unremarkable. Adrenal glands: Unremarkable. Kidneys: The unenhanced kidneys are normal in size and without hydronephrosis. There are no renal calculi identified. There is no evidence of contour deforming renal mass lesion. A retroaortic left renal vein is incidentally noted. Abdominal vasculature: The abdominal aorta is normal in course and caliber. Bowel: The small bowel and colon are normal in course and caliber. The appendix is not identified and reported surgically absent. Peritoneum: There is no intraperitoneal free air or abdominal ascites. Lymphadenopathy: None. Pelvic viscera: The bladder is normal as visualized. The post gravid uterus appears enlarged and heterogeneous. The ovaries are normal as imaged noting bilateral follicles. Numerous calcified phleboliths are seen in the pelvis. Soft tissues: There is induration within the subcutaneous fat in the ventral pelvis. There is a defect seen within the rectus abdominal small sludge in the pelvis on axial image #30 and 54. There is ill-defined fluid in this region which measures up to 3.4 cm in length. This appears to extend into the peritoneal cavity where there is mild inflammatory stranding. Skeletal structures: No lytic or blastic lesions are seen. Mild sclerotic change is noted in the sacroiliac joints and pubic symphysis. There is degenerative disc space narrowing at L5-S1. IMPRESSION: 1. Significantly suboptimal examination without oral and IV contrast. 2. The post gravid uterus is enlarged and heterogeneous, likely related to recent gestation. 3. There is a defect between the rectus abdominis musculature in the ventral pelvis. There is nonspecific fluid identified at this site which measures up to 3.4 cm in diameter. There is mild stranding both superficial and deep to this defect which appears to extend into the peritoneal cavity. This may simply represent postoperative change and fluid/hematoma. Superimposed infection/abscess would be impossible to exclude and clinical correlation will be essential. 4. Hepatomegaly and hepatic steatosis. Electronically signed by: Tristin Whitlock M.D. Laboratory Results 07/24/16 19:47 Red Blood Count 4.26, Mean Corpuscular Volume 90.4, Mean Corpuscular Hemoglobin 29.3, Mean Corpuscular Hemoglobin Concent 32.5, Mean Platelet Volume 8.7, Neutrophils (%) (Auto) 65.0, Lymphocytes (%) (Auto) 26.1, Monocytes (%) (Auto) 4.7, Eosinophils (%) (Auto) 3.2, Basophils (%) (Auto) 0.6, Neutrophils # (Auto) 5.56, Lymphocytes # (Auto) 2.23, Monocytes # (Auto) 0.40, Eosinophils # (Auto) 0.27, Basophils # (Auto) 0.05 07/24/16 19:05 Test 07/24/16 19:05 07/24/16 19:47 Anion Gap 10.0 mmol/L (3-11) Estimated GFR () 111.8 Estimated GFR (Non- 96.4 BUN/Creatinine Ratio 16.0 (10-20) Calcium Level 8.7 mg/dl (8.5-10.1) Total Bilirubin 0.2 mg/dl (0.2-1) Direct Bilirubin mg/dl (0-0.2) Aspartate Amino Transf (AST/SGOT) 24 U/L (15-37) Alanine Aminotransferase (ALT/SGPT) 39 U/L (12-78) Alkaline Phosphatase 65 U/L (45-117) Total Protein 7.7 gm/dl (6.4-8.2) Albumin 3.3 gm/dl (3.4-5.0) Lipase 226 U/L (73-393) Chemistry Specimen Hemolysis White Blood Count 8.54 K/uL (4.8-10.8) Red Blood Count 4.26 M/uL (4.2-5.4) Hemoglobin 12.5 g/dL (12.0-16.0) Hematocrit 38.5 % (37-47) Mean Corpuscular Volume 90.4 fL (80-100) Mean Corpuscular Hemoglobin 29.3 pg (25-34) Mean Corpuscular Hemoglobin Concent 32.5 g/dl (32-36) Platelet Count 349 K/uL (130-400) Mean Platelet Volume 8.7 fL (7.4-10.4) Neutrophils (%) (Auto) 65.0 % Lymphocytes (%) (Auto) 26.1 % Monocytes (%) (Auto) 4.7 % Eosinophils (%) (Auto) 3.2 % Basophils (%) (Auto) 0.6 % Neutrophils # (Auto) 5.56 K/uL (1.4-6.5) Lymphocytes # (Auto) 2.23 K/uL (1.2-3.4) Monocytes # (Auto) 0.40 K/uL (0.11-0.59) Eosinophils # (Auto) 0.27 K/uL (0-0.5) Basophils # (Auto) 0.05 K/uL (0-0.2) RDW Standard Deviation 45.1 fL (36.4-46.3) RDW Coefficient of Variation 13.7 % (11.5-14.5) Immature Granulocyte % (Auto) 0.4 % Immature Granulocyte # (Auto) 0.03 K/uL (0.00-0.02) Laboratory results as reviewed by me. Medications Administered Medications (Trade) Dose Ordered Sig/[facility] Route Start Time Stop Time Status Last Admin Dose Admin Morphine Sulfate (MoRPHine SULFATE INJ) 4 mg NOW STAT IV 07/24/16 18:45 07/24/16 18:48 DC 07/24/16 19:21 4 MG Ondansetron HCl (Zofran Inj) 4 mg NOW STAT IV 07/24/16 18:45 07/24/16 18:48 DC 07/24/16 19:20 4 MG Morphine Sulfate (MoRPHine SULFATE INJ) 4 mg NOW STAT IV 07/24/16 20:02 07/24/16 20:03 DC 07/24/16 20:05 4 MG ED Course 1839: The patient was evaluated in room C10. A complete history and physical exam was performed. 1844: Ordered Zofran Inj 4 mg IV, Morphine Sulfate 4 mg IV. 2001: Ordered Morphine Sulfate 4 mg IV. 2049: I reexamined the patient. She is resting comfortably. We discussed her test results. She verbalized agreement of the treatment plan. I discussed the patient's case with Dr. Gilman. The patient will be evaluated for further management. Medical Decision This is a 40-year-old female who presents with abdominal pain and drainage from her wound. I did perform a limited focused review of portions of the patient's old chart on the electronic medical record. The patient was discharged from hospital on July 06 for delayed post- hemorrhage after a . I did evaluate the patient as noted above. The patient has purulent drainage from the wound. I did culture this. IV access was established. I did treat her with IV morphine and Zofran. I did order and review the patient' s blood work as noted in the electronic medical record. I did order a CT of the abdomen and pelvis. I did review the images myself as well as the radiology report as described above. Patient has a wound abscess with inflammation extending intra-abdominally. The patient was given additional morphine for pain. I did discuss the test results with the patient and her family. I did discuss case with Dr. Gilman of [facility] who hospitalized the patient for IV antibiotics and further care. Consults Time Called: 2042 Consulting Physician: Dr. Gilman -NANETTE Returned Call: [phone] Gilman of [facility]. We discussed the patient and her results. The patient will be evaluated for further management. Impression Primary Impression: Wound abscess Scribe Attestation The scribe's documentation has been prepared under my direct and personally reviewed by me in its entirety. I confirm that the note above accurately reflects all work, treatment, procedures, and medical decision making performed by me. Departure Information Dispostion Being Evaluated By Surgeon Hiro Nunez M.D. (PCP) Patient Instructions My [facility] Problem Qualifiers Primary Impression: Wound abscess Encounter type: initial encounter Qualified Codes: T81.4XXA - Infection following a procedure, initial encounter
[2016-07-24] MEDS ORDERED: PATIENT'S HEIGHT AND/OR WEIGHT NEEDED STA (22:12)
--- NOTE | 2016-07-24 22:18 | HISTORY & PHYSICAL EXAMINATION ---
DATE OF ADMISSION: 07/24/2016 CHIEF COMPLAINT: Wound drainage. HISTORY OF PRESENT ILLNESS: The patient is a 40-year-old female, para 3-0-0-3 who presents today to the Emergency Room with lower abdominal wound drainage on the incision. There is a pinpoint size opening on the incision that started draining earlier today. The patient was out with her daughter, had a horse riding event and this started draining. was done on 06/15/2016 and there was noted to be extensive adhesions at that time. The patient is afebrile, white count is normal and appearing well otherwise. She has had no significant abdominal pain and was able to keep food down. No burning of urination. No diarrhea and no other symptoms. The patient is currently breast feeding and doing well there. PAST MEDICAL HISTORY: Positive for epilepsy, Hodgkins granuloma of the abdomen, PCOS, history of hemorrhage, history of delivery and history of x3. REVIEW OF SYSTEMS: Negative other than wound drainage. FAMILY HISTORY: Noncontributory. SOCIAL HISTORY: Denies smoking, alcohol or drug use. CURRENT MEDICATIONS: Include; Lexapro 10 mg p.o. daily, Keppra 1000 mg p.o. b.i.d., magnesium oxide 400 mg p.o. b.i.d., multivitamins daily, Aygestin 5 mg tapered dose and vitamin D3 1000 units every morning. ALLERGIES: CARBAMAZEPINE, CLONAZEPAM, ESTROGENS, GADOLINIUM, iodine DIAGNOSTIC AGENTS, LAMOTRIGINE, LATEX, NICKEL, SULFA DRUGS. PHYSICAL EXAMINATION: HEENT: Within normal limits. LUNGS: Clear to auscultation. COR: Regular rate and rhythm. ABDOMEN: Soft. There is no ascites or distention. Her incision is not appearing to be infected. There is drainage with fluid. Cultures were obtained in the ER. LABORATORIES: White count 8.54, hemoglobin 12.5, hematocrit 38.[address] scan shows defect between the rectus abdominis musculature and the ventral abdominal wall nonspecific fluid collection, measuring up to 3.4 cm in diameter infection or abscess possible. Hepatomegaly and hepatic steatosis also noted on CT scan. ASSESSMENT: Possible stroma versus possible fluid collection in the subcuticular space; could be a seroma or hematoma. PLAN: We will admit, start IV antibiotics, gentamicin and clindamycin. Repeat CBC, blood cultures pending. Continue observation. MTDD
[2016-07-24] MEDS ORDERED: PATIENT'S HEIGHT AND/OR WEIGHT NEEDED SCH (23:00)
[2016-07-24 23:15] VITALS: BP 112/77; PULSE 73; TEMP 36.8; O2SAT 100
[2016-07-24 23:23] VITALS: Ht 167.6 cm; Wt 88.2 kg
[2016-07-24] MEDS ORDERED: GENTAMICIN CONSULT ACTIVE PRN (23:30)
[2016-07-24] MEDS: LACTATED RINGER'S 1000ML 1,000 ML IV SCH (23:35)
[2016-07-24] MEDS: CLINDAMYCIN IV 900 MG in DEXTROSE 5% ADD-VANTAGE 100ML 100 ML IV SCH (23:36)
[2016-07-25] VITALS (8 sets, daily range): BP systolic 83–120; BP diastolic 50–80; PULSE 61–77; TEMP 36.7–37; O2SAT 97–100
[2016-07-25] MEDS ORDERED: CLINDAMYCIN 900 MG/106 ML D5W IV SCH
[2016-07-25] MEDS ORDERED: DEXTROSE 5% IV SCH (00:30)
[2016-07-25] MEDS ORDERED: GENTAMICIN IV SCH (00:30)
[2016-07-25] MEDS: GENTAMICIN INJ 500 MG in DEXTROSE 5% 100ML 100 ML IV SCH (00:59)
--- NOTE | 2016-07-25 02:43 | Pharmacy Progress Note ---
Pharmacy Antibiotic Consult Date of Service: July 25, 2016. Pharmacy Dosing Scope Pharmacy is consulted to initiate Gentamicin IV dosing therapy, order appropriate labs and adjust drug dose/frequency. Subjective The patient is a 40 year old female admitted on July 24, 2016 at 21:31 for wound infection from her performed approximately June [address] Gilman initiated both Clindamycin and Gentamicin which pharmacy will dose and follow. Objective Height (Feet): 5 Height (Inches): 6.00 Weight (Kilograms): 88.200 Lab Results (24hrs): Test 07/24/16 19:05 07/24/16 19:47 Sodium Level 142 mmol/L (136-145) Potassium Level 4.2 mmol/L (3.5-5.1) Chloride Level 108 mmol/L (98-107) Carbon Dioxide Level 24 mmol/L (21-32) Anion Gap 10.0 mmol/L (3-11) Blood Urea Nitrogen 12 mg/dl (7-18) Creatinine 0.78 mg/dl (0.60-1.20) Estimated GFR () 111.8 Estimated GFR (Non- 96.4 BUN/Creatinine Ratio 16.0 (10-20) Random Glucose 80 mg/dl (70-99) Calcium Level 8.7 mg/dl (8.5-10.1) Total Bilirubin 0.2 mg/dl (0.2-1) Direct Bilirubin mg/dl (0-0.2) Aspartate Amino Transf (AST/SGOT) 24 U/L (15-37) Alanine Aminotransferase (ALT/SGPT) 39 U/L (12-78) Alkaline Phosphatase 65 U/L (45-117) Total Protein 7.7 gm/dl (6.4-8.2) Albumin 3.3 gm/dl (3.4-5.0) Lipase 226 U/L (73-393) Chemistry Specimen Hemolysis White Blood Count 8.54 K/uL (4.8-10.8) Red Blood Count 4.26 M/uL (4.2-5.4) Hemoglobin 12.5 g/dL (12.0-16.0) Hematocrit 38.5 % (37-47) Mean Corpuscular Volume 90.4 fL (80-100) Mean Corpuscular Hemoglobin 29.3 pg (25-34) Mean Corpuscular Hemoglobin Concent 32.5 g/dl (32-36) Platelet Count 349 K/uL (130-400) Mean Platelet Volume 8.7 fL (7.4-10.4) Neutrophils (%) (Auto) 65.0 % Lymphocytes (%) (Auto) 26.1 % Monocytes (%) (Auto) 4.7 % Eosinophils (%) (Auto) 3.2 % Basophils (%) (Auto) 0.6 % Neutrophils # (Auto) 5.56 K/uL (1.4-6.5) Lymphocytes # (Auto) 2.23 K/uL (1.2-3.4) Monocytes # (Auto) 0.40 K/uL (0.11-0.59) Eosinophils # (Auto) 0.27 K/uL (0-0.5) Basophils # (Auto) 0.05 K/uL (0-0.2) RDW Standard Deviation 45.1 fL (36.4-46.3) RDW Coefficient of Variation 13.7 % (11.5-14.5) Immature Granulocyte % (Auto) 0.4 % Immature Granulocyte # (Auto) 0.03 K/uL (0.00-0.02) Micro Results: Item Value Date Time Blood Culture Received 07/24/16 1947 Blood Pending Blood Culture Received 07/24/16 1905 Blood Pending Gram Stain Received 07/24/16 0000 Drainage - Surface Abdomen Pending Recent Pertinent Medications Item Value Date Time Clindamycin 106 ml @ 106 mls/hr 07/24/16 2330 Phosphate 900 mg/ Q6/IV 07/24/16 2336 Dextrose Assessment & Plan I initiated the extended interval protocol for the Gentamicin. She will get Gentamicin 500mg (~7mg/kg) IV every 24 hours. We will confirm daily dosing via the Extended interval nomogram after obtaining a random Gentamicin level that I ordered for approximately 8 hours after the initiation of the infusion. Pharmacy will continue to follow and will adjust dose/frequency as necessary. Thank you
[2016-07-25] MEDS: IBUPROFEN 600 MG TAB PO PRN ×5 (03:54→21:04)
[2016-07-25] MEDS: OXYCODONE/ACETAMINOPHEN 5-325 TAB PO PRN ×5 (03:55→21:03)
[2016-07-25] MEDS: CLINDAMYCIN IV 900 MG in DEXTROSE 5% ADD-VANTAGE 100ML 100 ML IV SCH ×4 (05:58→23:37)
[2016-07-25 06:37] LABS: BASO % 0.9 %; BASO ABS # 0.05 K/uL (0-0.2); COMPLETE YES; EOS % 5.9 %; HEMATOCRIT 36.5 % (37-47); IG% 0.3 %; LYMPH % 36.9 %; LYMPH ABS # 2.11 K/uL (1.2-3.4); MEAN CELL VOLUME 91.5 fL (80-100); MEAN CORPUSCULAR HEMOGLOBIN 29.6 pg (25-34); MEAN CORPUSCULAR HGB CONC 32.3 g/dl (32-36); MEAN PLATELET VOLUME 8.7 fL (7.4-10.4); MONO % 7.3 %; NEUT % 48.7 %; PLATELET COUNT 345 K/uL (130-400); RED BLOOD COUNT 3.99 M/uL (4.2-5.4); WHITE BLOOD COUNT 5.72 K/uL (4.8-10.8)
[2016-07-25 07:15] LABS: CREATININE 0.86 mg/dl (0.60-1.20)
[2016-07-25] MEDS: MAGNESIUM OXIDE 400 MG TAB PO SCH ×2 (07:48→19:32)
[2016-07-25] MEDS: PRENATAL VITAMIN TAB PO SCH (07:48)
[2016-07-25] MEDS: ESCITALOPRAM OXALATE 10 MG TAB PO SCH (07:48)
[2016-07-25] MEDS: LEVETIRACETAM 500 MG TAB PO SCH ×2 (07:48→19:32)
--- NOTE | 2016-07-25 09:26 | Surgery Progress Note ---
Surgery Progress Note Date of Service July 25, 2016. Subjective Post OP Day: + ambulating, + flatus, + pain controlled Objective Vital Signs: Date Time Temp Pulse Resp B/P Pulse Ox O2 Delivery O2 Flow Rate FiO2 07/25/16 07:35 36.7 67 16 91/59 Room Air 07/25/16 04:10 36.7 77 18 105/68 100 Room Air 07/24/16 23:15 36.8 73 18 112/77 100 Room Air 07/24/16 23:15 36.8 73 18 112/77 100 Room Air 07/24/16 23:15 100 Room Air 07/24/16 22:30 70 18 111/71 97 Room Air 07/24/16 22:00 70 18 124/82 97 Room Air 07/24/16 21:30 80 18 128/76 98 Room Air 119/89 07/24/16 21:10 69 18 128/76 98 Room Air 07/24/16 20:01 72 17 113/72 99 Room Air 07/24/16 19:30 67 15 119/81 98 Room Air 07/24/16 19:22 74 07/24/16 19:21 71 19 115/72 98 Room Air 07/24/16 18:32 36.7 80 20 127/76 100 Room Air General Appearance: no apparent distress Abdomen: non tender, non distended, soft Incision(s): clean, intact, drainage Extremities: non-tender, normal inspection, no pedal edema, no calf tenderness Laboratory Results: Results Past 24 Hours Test 07/24/16 19:05 07/24/16 19:47 07/25/16 06:18 07/25/16 09:08 Range/Units Sodium Level 142 136-145 mmol/L Potassium Level 4.2 3.5-5.1 mmol/L Chloride Level 108 98-107 mmol/L Carbon Dioxide Level 24 21-32 mmol/L Anion Gap 10.0 3-11 mmol/L Blood Urea Nitrogen 12 7-18 mg/dl Creatinine 0.78 0.86 0.60-1.20 mg/dl Estimated GFR () 111.8 99.3 Estimated GFR (Non- 96.4 85.7 BUN/Creatinine Ratio 16.0 10-20 Random Glucose 80 70-99 mg/dl Calcium Level 8.7 8.5-10.1 mg/dl Total Bilirubin 0.2 0.2-1 mg/dl Direct Bilirubin 0-0.2 mg/dl Aspartate Amino Transf (AST/SGOT) 24 15-37 U/L Alanine Aminotransferase (ALT/SGPT) 39 12-78 U/L Alkaline Phosphatase 65 45-117 U/L Total Protein 7.7 6.4-8.2 gm/dl Albumin 3.3 3.4-5.0 gm/dl Lipase 226 73-393 U/L Chemistry Specimen Hemolysis White Blood Count 8.54 5.72 4.8-10.8 K/uL Red Blood Count 4.26 3.99 4.2-5.4 M/uL Hemoglobin 12.5 11.8 12.0-16.0 g/dL Hematocrit 38.5 36.5 37-47 % Mean Corpuscular Volume 90.4 91.5 80-100 fL Mean Corpuscular Hemoglobin 29.3 29.6 25-34 pg Mean Corpuscular Hemoglobin Concent 32.5 32.3 32-36 g/dl Platelet Count 349 345 130-400 K/uL Mean Platelet Volume 8.7 8.7 7.4-10.4 fL Neutrophils (%) (Auto) 65.0 48.7 % Lymphocytes (%) (Auto) 26.1 36.9 % Monocytes (%) (Auto) 4.7 7.3 % Eosinophils (%) (Auto) 3.2 5.9 % Basophils (%) (Auto) 0.6 0.9 % Neutrophils # (Auto) 5.56 2.78 1.4-6.5 K/uL Lymphocytes # (Auto) 2.23 2.11 1.2-3.4 K/uL Monocytes # (Auto) 0.40 0.42 0.11-0.59 K/uL Eosinophils # (Auto) 0.27 0.34 0-0.5 K/uL Basophils # (Auto) 0.05 0.05 0-0.2 K/uL RDW Standard Deviation 45.1 46.2 36.4-46.3 fL RDW Coefficient of Variation 13.7 13.7 11.5-14.5 % Immature Granulocyte % (Auto) 0.4 0.3 % Immature Granulocyte # (Auto) 0.03 0.02 0.00-0.02 K/uL Est Creatinine Clear Calc Drug Dose 99.2 ml/min Microbiology Results 07/24/16 Blood Culture, Received Pending 07/24/16 Blood Culture, Received Pending Assessment & Plan regular diet Continue antibiotics cultures pending tent d/c in AM
--- NOTE | 2016-07-25 12:06 | Pharmacy Progress Note ---
Pharmacy Abx Dose Short Note Date of Service July 25, 2016. Assessment & Plan Assessment 40 year old female receiving GENTAMICIN 500mg (~7mg/kg adjusted body weight) IV Q 24 hrs ([place] Protocol) for treatment of infected C section wound. Day # 1 of antimicrobial therapy. CoN Staph and Diptheroids growing in wound drainage cx. [facility] may or may not cover CoN Staph (68% likelihood per current antibiogram); Diptheroids may colonize skin, however they can also be pathogenic. Antibiotics are the treatment of choice for nondiphtherial corynebacteria infections. Many species and groups are sensitive to various antibiotics, including penicillins, macrolide antibiotics, rifampin, and fluoroquinolones. However, antibiotic susceptibility can vary, and susceptibility testing is recommended - but not performed at our lab. Please correlate clinical response to abx therapy. Neither gent or clindamycin have strong corynebacterium coverage. Plan Gentamicin * A random gentamicin level was obtained ~ 8 hrs after the 1st dose was hung * This level was 5.1mcg/mL. This level falls within the Q 24 hrs dosing interval per the [place] protocol. * Continue dose of 500 mg IV every 24 hours * Will repeat a random level in 3-5 days if therapy is to continue. * Will continue to assess renal fxn per labs while receiving gent Clindamycin * No change in dose required at this time; continue 900mg IV Q 6 hours as no adjustment required for current renal or hepatic fxn; although a lesser dose may also be adequate - follow response clinically. Pharmacy will continue to follow and will adjust dose/frequency as necessary. Thank you.
[2016-07-25] MEDS: LACTATED RINGER'S 1000ML 1,000 ML IV SCH (19:35)
[2016-07-26] MEDS: GENTAMICIN INJ 500 MG in DEXTROSE 5% 100ML 100 ML IV SCH (00:53)
[2016-07-26 04:30] VITALS: BP 104/67; PULSE 63; TEMP 36.7; O2SAT 95
[2016-07-26] MEDS: CLINDAMYCIN IV 900 MG in DEXTROSE 5% ADD-VANTAGE 100ML 100 ML IV SCH (05:43)
[2016-07-26] MEDS: LACTATED RINGER'S 1000ML 1,000 ML IV SCH (05:43)
[2016-07-26] MEDS: OXYCODONE/ACETAMINOPHEN 5-325 TAB PO PRN (05:43)
[2016-07-26] MEDS: IBUPROFEN 600 MG TAB PO PRN (05:44)
[2016-07-26 06:54] LABS: CREATININE 0.97 mg/dl (0.60-1.20)
[2016-07-26 07:30] VITALS: BP 115/85; PULSE 60; TEMP 36.6; O2SAT 96
[2016-07-26] MEDS: PRENATAL VITAMIN TAB PO SCH (08:14)
[2016-07-26] MEDS: ESCITALOPRAM OXALATE 10 MG TAB PO SCH (08:14)
[2016-07-26] MEDS: MAGNESIUM OXIDE 400 MG TAB PO SCH (08:14)
[2016-07-26] MEDS: LEVETIRACETAM 500 MG TAB PO SCH (08:15)
--- NOTE | 2016-07-26 08:41 | Surgery Progress Note ---
Surgery Progress Note Date of Service July 26, 2016. Subjective Post OP Day: + ambulating, + bowel movement, + feeling well, + flatus, + pain controlled, No SOB, No chest pain, No complaints, No diet, No nausea, No using [employer], No vomiting Objective Vital Signs: Date Time Temp Pulse Resp B/P Pulse Ox O2 Delivery O2 Flow Rate FiO2 07/26/16 04:30 36.7 63 18 104/67 95 Room Air 07/25/16 23:25 37.0 61 18 110/71 97 Room Air 07/25/16 23:25 97 Room Air 07/25/16 19:20 36.7 62 18 115/80 98 Room Air 07/25/16 17:00 Room Air 07/25/16 17:00 36.7 67 16 120/79 Room Air 07/25/16 12:30 36.8 63 18 97/65 Room Air 07/25/16 09:15 97/61 General Appearance: WD/WN, no apparent distress Head: normocephalic, atraumatic Neck: supple, no adenopathy, thyroid normal, no JVD, no carotid bruits, trachea midline Respiratory/Chest: chest non-tender, lungs clear, normal breath sounds, no respiratory distress, no accessory muscle use Cardiovascular: regular rate, rhythm, no edema, no gallop, no JVD, no murmur Abdomen: normal bowel sounds, non tender, non distended, soft, no organomegaly , no pulsatile mass Incision(s): clean, dry, no erythema, drainage (Minimal ) Extremities: normal range of motion, non-tender, normal inspection, no pedal edema, no calf tenderness, normal capillary refill, pelvis stable Laboratory Results: Results Past 24 Hours Test 07/25/16 09:08 07/26/16 06:13 Range/Units Random Gentamicin Level 5.10 mcg/ml Creatinine 0.97 0.60-1.20 mg/dl Est Creatinine Clear Calc Drug Dose 88.0 ml/min Estimated GFR () 85.9 Estimated GFR (Non- 74.1 Assessment & Plan S/p c/sec on 06/15/16 readmitted on 07/24/16 for incision drainage Afebrile- on IV antibx X 48 hrs d/c home today on Keflex f/u with
[2016-07-26] MEDS ORDERED: IBUP-1450 PO (08:42)
[2016-07-26] MEDS ORDERED: OXYC-57 PO (08:42)
--- NOTE | 2016-07-26 08:44 | Discharge Instructions ---
Discharge Instructions Date of Service July 26, 2016. Admission Reason for Admission: Wound Seroma Discharge Discharge Diagnosis / Problem: postop c/sec wound drainage Discharge Goals Goal(s): Routine recovery after surgery Activity Recommendations Activity Limitations: as noted below ACTIVITY RECOMMENDATIONS: * Gradual return to full activity over the next 2-3 weeks. * No lifting - nothing heavier than baby over the next 2-3 weeks. * Do not engage in vigorous exercise, sexual activity or sports until cleared by your physician. * Do not drive or operate any motorized equipment until cleared by your physician. * You may shower/bathe daily. BREAST CARE: If you are not breast feeding: * Wear a supportive bra 24 hours a day for one to two weeks. * Avoid stimulating your breasts and nipples as much as possible during the first few weeks after delivery. * When taking a shower, have the warm water hit your back, not breasts. * When your breasts feel full, apply ice packs. Usually three to four times a day helps ease the discomfort. * Take a mild pain medication (Tylenol/Motrin) when you are uncomfortable. If breast feeding: * Use breast milk to lubricate nipples. Lansinoh cream may be used for sore nipples. You do not need to remove cream prior to breast feeding. If using a different brand of cream, check the label for directions regarding removal of cream prior to nursing. * Wear a supportive bra. * If having problems with breasts or breast feeding, call a industrial methods consultant or your health care provider. OVER THE COUNTER MEDICATION: * For discomfort or pain, you may use Acetaminophen (Tylenol), Ibuprofen (Advil ), or Naproxen (Aleve) following the package directions. * For constipation you may use Colace following the package directions. SPECIAL CARE INSTRUCTIONS: When you are discharged from the hospital, it is important for you to follow the instructions listed below: * During the first week at home, you should be able to care for yourself and your baby. In addition, the usual light household activities are encouraged. * Limit your activities to the way you feel. Do not try to clean the house or move furniture. Be sensible. * If you actively engage in sports and have done so up until the time of your delivery, you may resume these activities as soon as you feel able. This may take up to one month or even longer. Use good judgment. * Continue to take your vitamins for at least six weeks after the of your baby. * Your diet need not be limited unless you were on a special diet before your delivery. Breast-feeding mothers need around 2500 calories per day and at least 64-80 ounces of fluid per day (8 to 10 glasses). * You should eat foods from the four major food groups. Crash diets or fad diets are to be avoided. Eating lean meats, fresh fruits and vegetables, low-fat dairy products, high fiber foods and a regular exercise program, will help you get back to your pre- weight without putting your health at risk. * Constipation is sometimes a problem after delivery. Take a mild laxative as needed. If breast feeding, Milk of Magnesia is acceptable to use. You may use a suppository or Fleets enema if no episiotomy. * A daily shower or tub bath is suggested. Be sure to thoroughly and gently dry the perineum. * A bloody vaginal discharge will usually continue until around four weeks post . A small amount of bleeding may continue for as long as six weeks. Vaginal discharge changes from the bright red bleeding after delivery to pink then brownish and finally yellowish-pink before becoming white and disappearing. * Bleeding may increase with activity. Your first period may come in 4-8 weeks. If you are breast feeding, your period may be delayed even longer. * [place] (sex) can begin whenever both you and your partner feel comfortable and do not have any form of genital infection. It is recommended that you wait at least six weeks for internal and external healing to occur. If you have questions, please talk to your health care practitioner. A condom should be used to prevent infection and . * Foreplay, gentle intercourse and lubrication is very important the first several times to prevent pain. A water-based lubricant such as K-Y jelly or Astroglide may be used. * Tampons and/or Douching should be avoided until after six weeks check-up. * If you have RH negative blood and your baby is RH positive, you will receive RHOGAM by injection prior to discharge. The nurse will give you a card to keep with you that has the date and place that you received RHOGAM after delivery. * During your care, you had a Rubella screen done to check for the presence of rubella antibodies in your blood. If your test was negative, you will receive a Rubella vaccine prior to discharge. This vaccine may cause a fever, soreness at the injection site and flu-like symptoms. If these symptoms persist, notify your health care practitioner. is not advised for three months after a Rubella vaccine. * Verbalizes understanding of car seat law as reviewed with patient nursing. * Car Seat hand-out given and reviewed with patient by nursing. * Shaken baby information reviewed with patient by nursing. Call you doctor if: * Heavy bleeding (saturating several pads an hour) or passing clots the size of your fist. * A fever >101 degrees F (38.3 degrees C) on two occasions four hours apart and /or chills. * Unusual pain in the pelvic or vaginal areas. Pain should improve each day . * Call the doctor for any increased redness, drainage or swelling around the incision and any pain unrelieved by prescribed pain medication. * Any signs or symptoms of phlebitis (possible blood clots forming in the veins ): leg pain, warm, red or swollen area on leg. * "Baby Blues" lasting longer than two weeks. If you have any questions or concerns, call your health care practitioner at . FOLLOW-UP VISIT: * Incision check (staple removal) in 1 week. Please call doctor's office at to set up appointment. * Please call the office at to schedule a 6 week examination. It is important you keep this appointment. * It is important for you to make arrangements for either yearly or twice yearly check-ups thereafter. . Current Hospital Diet Patient's current hospital diet: Regular Diet Discharge Diet Recommended Diet: Regular Diet Pending Studies Studies pending at discharge: no Medical Emergencies . Who to Call and When: Medical Emergencies: If at any time you feel your situation is an emergency, please call [phone] immediately. . Non-Emergent Contact Non-Emergency issues call your: Specialist . . "Provider Documentation" section prepared by Brian Asher. . VTE Core Measure Inpt VTE Proph given/why not?: Treatment not indicated
[2016-07-26] MEDS ORDERED: CEPH-570 PO (08:57)
[2016-07-26 09:05] VITALS: BP 115/85; PULSE 60; TEMP 36.6; O2SAT 96
[2016-07-26 10:41] VITALS: BP_DIAS 85; PULSE 60; TEMP 36.6
--- NOTE | 2016-08-08 20:58 | DISCHARGE SUMMARY ---
CHIEF COMPLAINT: Suspected wound infection post- section. HISTORY OF PRESENT ILLNESS: This is a 40-year-old G3, P3 who underwent a section on 06/15/2016, this was her third section. Surgery was uneventful except for severe adhesions. Surgery was performed by Dr. Gilman. The patient was discharged home on postop day #3 without any complications. She had been doing well until that fifth day 07/24/2006 when she experienced some drainage from the incision site while out walking with her daughter. She had no fever, no chills. The patient came to the Emergency Room where she was seen and evaluated. Decision was therefore made to admit patient for observation. On admission, a CBC was unremarkable. She had no fever, no chills. The patient was admitted and started on antibiotics therapy and discharged home in stable condition on 07/26/2016. PAST MEDICAL HISTORY: 1. History of epilepsy. 2. Hodgkin granuloma. 3. PCOS and hemorrhage. PAST SURGICAL HISTORY: x3. FAMILY HISTORY: Noncontributory. SOCIAL HISTORY: The patient denies tobacco, drug or alcohol use. ALLERGIES: THE PATIENT IS ALLERGIC TO CLONAZEPAM, CARBAMAZEPINE AND SULFA DRUGS. REVIEW OF SYSTEMS: Negative except as dictated in the HPI. PHYSICAL EXAMINATION: GENERAL: Well-developed, well-nourished white female in no acute distress. VITAL SIGNS: On 07/26/2016 show temperature of 36.6, pulse of 60, respirations of 16, blood pressure of 115/85. HEART: S1, S2, regular rhythm and rate. LUNGS: Clear to auscultation bilaterally. ABDOMEN: Nontender and nondistended. Abdominal incision was a pinpoint drainage. There is bilateral clear discharge. The incision site has very little erythema. EXTREMITIES: No cyanosis, clubbing or edema. LABORATORY DATA: Hemoglobin was 11.8, hematocrit was 36.5, white blood cell count was 5.7, and platelets were 345,000. CONDITION ON DISCHARGE: Stable. OPERATIONS: Postop wound infection. DISCHARGE DIAGNOSIS: Postoperative wound infection. PLAN ON DISCHARGE: The patient is discharged home with instructions regarding activity, diet, followup appointment and medications.
== END 2016-07-26 10:40 | disposition home or self-care (01) | DRG 776 ==
LOC: ENRESERVDT → ENRESERVTM → C.EDB 18:30 → C.OBG 21:31
PROVIDERS: ADMIT Obstetrics & Gynecology; ATTEND Obstetrics & Gynecology
DX: O86.0 Infection of obstetric surgical wound (principal); O99.355 Diseases of the nervous system complicating the puerperium; G40.909 Epilepsy, unspecified, not intractable, without status epilepticus; O34.219 Maternal care for unspecified type scar from previous cesarean delivery; N85.8 Other specified noninflammatory disorders of uterus; Z79.891 Long term (current) use of opiate analgesic; Z79.899 Other long term (current) drug therapy

== ENCOUNTER → 2016-08-26 | Outpatient (CLI) | payer BC ==
[~2016-08-26] MED LIST changes: +CEPH-570 PO; +NORE5TAB5 PO
[2016-08-26 12:54] LABS: PFT COL EPI 117 SECONDS (80-184)
[2016-08-31 16:39] LABS: LUPUS ANTICOAGULANT** TC36573X Negative (Negative); RISTOCETIN COFACTOR** 4459X 179 % (42-200)
== END | disposition home or self-care (01) ==
LOC: C.LAB 09:43
PROVIDERS: ATTEND Internal Medicine Hematology
DX: O72.1 Other immediate postpartum hemorrhage (principal)

== ENCOUNTER 2017-03-28 16:25 | Emergency (ER) | payer BC, OTHER ==
[~2017-03-28] VITALS: Ht 167.6 cm; Wt 95.7 kg
[2017-03-28 16:30] VITALS: TEMP 36.4; Ht 167.6 cm; Wt 95.7 kg
[2017-03-28] MEDS ORDERED: PANTOprazole SOD 40 MG TAB PO STA (17:43)
[2017-03-28] MEDS ORDERED: SODIUM CHLORIDE 0.9% 1000ML 250 ML IV STA (17:43)
[2017-03-28] MEDS ORDERED: ONDANSETRON INJ 2 MG/ML 2 ML VIAL IV STA (17:43)
[2017-03-28] MEDS ORDERED: RANITIDINE HCL 150 MG TAB PO STA (17:43)
[2017-03-28] MEDS ORDERED: LEVETIRACETAM IV 250 MG in DEXTROSE 5% 100ML 100 ML IV STA (17:43)
[2017-03-28] MEDS ORDERED: DiphenhydrAMINE HCL 50 MG/ML VIAL IV STA (17:43)
[2017-03-28] MEDS ORDERED: PROCHLORPERAZINE 5 MG/ML 2 ML VIAL IV STA (17:43)
--- NOTE | 2017-03-28 18:01 | EMERGENCY ROOM VISIT NOTE ---
History Report prepared by Khari: Radha Carlson Under the Supervision of: Dr. Tristin Pritchett M.D. First contact with patient: 17:34 Chief Complaint: HEADACHE Stated Complaint: MIGRAINE, VOMITING UP BLOOD, COLD History of Present Illness The patient is a 41 year old female who presents to the Emergency Room with complaints of a persistent right sided headache that started this morning. The patient rates her pain an 8/10. She states she has a history of headaches. She notes she also takes Keppra regularly. The patient reports she has not fallen. She notes she has had a cold for about a week. The patient notes she is experiencing a cough, stuffy nose, vomiting, and chest pain. She notes there was blood in her vomit when she vomited this morning. The patient states her chest pain worsens when she coughs. She reports she has had an intermittent fever for the past week. She notes she received her flu shot this year. The patient denies any diarrhea or urinary symptoms at this time. Source of History: patient Onset: this morning Position: head Symptom Intensity: 8/10 Timing: other (persistent) Associated Symptoms: + cough, + chest pain, + vomiting, No diarrhea, No urinary symptoms Note: Additional symptoms: nasal congestion. Review of Systems See HPI for pertinent positives & negatives. A total of 10 systems reviewed and were otherwise negative. Past Medical & Surgical Medical Problems: (1) Epilepsy (2) Hodgkin's granuloma of abdomen (3) PCOS (polycystic ovarian syndrome) (4) hemorrhage (5) hemorrhage, condition (6) uterine contractions in third trimester, antepartum (7) RULE OUT RUPTURED MEMBRANES 34 WEEKS (8) RULE OUT RUPTURED MEMBRANES 34 WEEKS (9) Wound seroma Surgical Problems: (1) History of appendectomy Family History Cancer Diabetes mellitus Heart disease Hypertension Seizures Social History Smoking Status: Never Smoker Alcohol Use: none Marital Status: Housing Status: lives with family Occupation Status: employed Current/Historical Medications Scheduled Escitalopram (Lexapro), 10 MG PO DAILY Levetiracetam (Keppra), 1,000 MG PO BID Magnesium Oxide (Mag-Ox), 400 MG PO BID Omeprazole (Prilosec), 20 MG PO DAILY Ondasetron Odt (Zofran Odt), 4 MG SL Q6H Scheduled PRN Acetamin/Butalbital/Caffeine (Fioricet), 1 TAB PO DIRECTED PRN for Migraine Benzonatate (Tessalon Perles), 100-200 MG PO TID PRN for Cough Allergies Coded Allergies: Estrogens (Verified Allergy, Severe, MIGRAINES THEN SEIZURE, 03/28/17) Gadolinium (Verified Allergy, Severe, SHORTNESS OF BREATH, 03/28/17) Iodinated Diagnostic Agents (Verified Allergy, Severe, SHORTNESS OF BREATH , 03/28/17) Zonisamide (Verified Allergy, Severe, DIFFICULTY BREATHING, 03/28/17) Clonazepam (Verified Allergy, Intermediate, RASH, 03/28/17) Phenytoin (Verified Allergy, Intermediate, RASH, FEVER, 03/28/17) Carbamazepine (Verified Allergy, Unknown, RASH, 03/28/17) Lamotrigine (Verified Allergy, Unknown, RASH SOB, 03/28/17) Latex1 -Allergic Contact Dermititis (Verified Allergy, Unknown, `, 03/28/17 ) Nickel (Verified Allergy, Unknown, RASH WITH NICKEL, GOLD, STAINLESS STEEL , 03/28/17) Sulfa Drugs (Verified Allergy, Unknown, HIVES, 03/28/17) Sulfonylureas (Verified Allergy, Unknown, HIVES, 03/28/17) Physical Exam Vital Signs Date Time Temp Pulse Resp B/P (MAP) Pulse Ox O2 Delivery O2 Flow Rate FiO2 03/28/17 21:00 87 15 117/86 96 03/28/17 18:31 93 18 137/90 96 Room Air 03/28/17 16:30 36.4 93 16 144/98 96 Room Air Physical Exam GENERAL: Patient is in no acute distress. HEENT: No acute trauma, normocephalic atraumatic, mucous membranes moist, no nasal congestion, no scleral icterus. No throat erythema or exudate. NECK: No stridor, no adenopathy, no meningismus, trachea is midline. LUNGS: Clear to auscultation bilaterally, no wheeze, no rhonchi, breath sounds equal. HEART: Without murmurs gallops or rubs, regular rate and rhythm. CHEST: Tender in mid sternal chest wall. ABDOMEN: Soft, nontender, bowel sounds positive, no hernias, no peritonitis. EXTREMITIES: No cyanosis or edema, full range of motion of all the joints without pain or difficulty, no signs for acute trauma. NEUROLOGIC: Oriented x 3, no acute motor or sensory deficits, no focal weakness. SKIN: No rash, no jaundice, no diaphoresis. RECTAL: Brown stool, heme negative. Medical Decision & Procedures ER Provider Diagnostic Interpretation: Radiology results as stated below per my review and radiologist interpretation: CHEST ONE VIEW PORTABLE CLINICAL HISTORY: Altered mental status. Weakness. COMPARISON STUDY: 07/31/2009 FINDINGS: The cardiac and mediastinal contours are normal. There is no evidence of focal pulmonary consolidation. There is no evidence of failure. No pleural effusions are visualized. IMPRESSION: No active disease in the chest. Electronically signed by: Antonio Zaldivar M.D. 03/28/2017 6:02 PM Dictated Date/Time: 03/28/2017 6:02 PM. Laboratory Results 03/28/17 18:10 Red Blood Count 5.50, Mean Corpuscular Volume 87.3, Mean Corpuscular Hemoglobin 31.3, Mean Corpuscular Hemoglobin Concent 35.8, Mean Platelet Volume 10.0, Neutrophils (%) (Auto) 75.4, Lymphocytes (%) (Auto) 15.8, Monocytes (%) (Auto) 6.2, Eosinophils (%) (Auto) 1.9, Basophils (%) (Auto) 0.5, Neutrophils # (Auto) 6.44, Lymphocytes # (Auto) 1.35, Monocytes # (Auto) 0.53, Eosinophils # (Auto) 0.16, Basophils # (Auto) 0.04 03/28/17 18:10 Test 03/28/17 18:10 03/28/17 18:38 03/28/17 19:38 White Blood Count 8.54 K/uL (4.8-10.8) Red Blood Count 5.50 M/uL (4.2-5.4) Hemoglobin 17.2 g/dL (12.0-16.0) Hematocrit 48.0 % (37-47) Mean Corpuscular Volume 87.3 fL (80-100) Mean Corpuscular Hemoglobin 31.3 pg (25-34) Mean Corpuscular Hemoglobin Concent 35.8 g/dl (32-36) Platelet Count 281 K/uL (130-400) Mean Platelet Volume 10.0 fL (7.4-10.4) Neutrophils (%) (Auto) 75.4 % Lymphocytes (%) (Auto) 15.8 % Monocytes (%) (Auto) 6.2 % Eosinophils (%) (Auto) 1.9 % Basophils (%) (Auto) 0.5 % Neutrophils # (Auto) 6.44 K/uL (1.4-6.5) Lymphocytes # (Auto) 1.35 K/uL (1.2-3.4) Monocytes # (Auto) 0.53 K/uL (0.11-0.59) Eosinophils # (Auto) 0.16 K/uL (0-0.5) Basophils # (Auto) 0.04 K/uL (0-0.2) RDW Standard Deviation 40.3 fL (36.4-46.3) RDW Coefficient of Variation 12.6 % (11.5-14.5) Immature Granulocyte % (Auto) 0.2 % Immature Granulocyte # (Auto) 0.02 K/uL (0.00-0.02) Anion Gap 11.0 mmol/L (3-11) Est Creatinine Clear Calc Drug Dose 127.6 ml/min Estimated GFR () 127.1 Estimated GFR (Non- 109.7 BUN/Creatinine Ratio 14.8 (10-20) Calcium Level 9.2 mg/dl (8.5-10.1) Magnesium Level 2.0 mg/dl (1.8-2.4) Total Bilirubin 0.6 mg/dl (0.2-1) Aspartate Amino Transf (AST/SGOT) 12 U/L (15-37) Alanine Aminotransferase (ALT/SGPT) 21 U/L (12-78) Alkaline Phosphatase 54 U/L (45-117) Troponin I < 0.015 ng/ml (0-0.045) Total Protein 7.9 gm/dl (6.4-8.2) Albumin 3.7 gm/dl (3.4-5.0) Globulin 4.2 gm/dl (2.5-4.0) Albumin/Globulin Ratio 0.9 (0.9-2) Human Chorionic Gonadotropin, Qual NEG (NEG) Influenza Type A Antigen Neg for Influ A (NEG) Influenza Type B Antigen Neg for Influ B (NEG) Urine Color YELLOW Urine Appearance CLOUDY (CLEAR) Urine pH 5.5 (4.5-7.5) Urine Specific [place] 1.020 (1.000-1.030) Urine Protein NEG (NEG) Urine Glucose (UA) NEG (NEG) Urine Ketones 1+ (NEG) Urine Occult Blood NEG (NEG) Urine Nitrite NEG (NEG) Urine Bilirubin NEG (NEG) Urine Urobilinogen NEG (NEG) Urine Leukocyte Esterase NEG (NEG) Urine WBC (Auto) 1-5 /hpf (0-5) Urine RBC (Auto) 0-4 /hpf (0-4) Urine Hyaline Casts (Auto) 1-5 /lpf (0-5) Urine Epithelial Cells (Auto) >30 /lpf (0-5) Urine Bacteria (Auto) 1+ (NEG) Laboratory results reviewed by me. Medications Administered Medications (Trade) Dose Ordered Sig/Dank Route Start Time Stop Time Status Last Admin Dose Admin Sodium Chloride 250 ml @ 999 mls/hr Q16M STAT IV 03/28/17 17:43 03/28/17 17:58 DC 03/28/17 17:43 999 MLS/HR Ondansetron HCl (Zofran Inj) 4 mg NOW STAT IV 03/28/17 17:43 03/28/17 17:47 DC 03/28/17 18:24 4 MG Levetiracetam 250 mg/Dextrose 102.5 ml @ 420 mls/hr NOW STAT IV 03/28/17 17:43 03/28/17 17:57 DC 03/28/17 18:24 420 MLS/HR Prochlorperazine Edisylate (Compazine Inj) 10 mg NOW STAT IV 03/28/17 17:43 03/28/17 17:47 DC 03/28/17 18:24 10 MG Diphenhydramine HCl (Benadryl Inj) 50 mg NOW STAT IV 03/28/17 17:43 03/28/17 17:47 DC 03/28/17 18:24 50 MG Pantoprazole Sodium (Protonix Tab) 40 mg NOW STAT PO 03/28/17 17:43 03/28/17 17:47 DC 03/28/17 18:23 40 MG Ranitidine HCl (zANTac TAB) 150 mg NOW STAT PO 03/28/17 17:43 03/28/17 17:47 DC 03/28/17 18:23 150 MG Ondansetron HCl (ZOFRAN ODT 4MG Home Pack) 1 homepack UD ONCE PO 03/28/17 20:30 03/28/17 20:31 DC 03/28/17 20:55 1 HOMEPACK Albuterol (Ventolin Hfa Inhaler) 2 puffs NOW ONCE INH 03/28/17 20:30 03/28/17 20:31 DC 03/28/17 20:55 2 PUFFS ECG Indication: other (headache) Rate (beats per minute): 86 Rhythm: normal sinus Findings: no acute ischemic change, no ectopy ED Course 1733: The patient was evaluated in room C10. A complete history and physical exam was performed. 1742: zANTac Tab 150 mg PO, Protonix Tab 40 mg PO, Benadryl Inj 40 mg PO, Compazine Inj 10 mg IV, Levetiracetam 250 mg/Dextrose 102.5 ml @ 420 mls/hr IV, Zofran Inj 4 mg IV, Sodium Chloride 250 ml @ 999 mls/hr IV. 2009: Reevaluated the patient and she is feeling significantly better. The plan at this time is to discharge her if her urine results are normal. 2029: Albuterol 2 puffs INH, Ondansetron HCI 1 homepack PO. 2050: Updated the patient with her urine results. Results showed everything is normal. Discussed discharge instructions: She verbalized understanding and agreement. The patient is ready for discharge. Medical Decision The patient is a 41 year old female who presents to the ED with complaints of a headache. Differential diagnoses considered include influenza, flu like illness , bronchitis, PNA, GI bleeding, esophageal tear, intracranial bleed, meningitis , migraine, dehydration, UTI, electrolyte imbalance. There is no leukocytosis or concerning anemia. No significant electrolyte abnormality, kidney failure, hepatitis or pancreatitis. Urinalysis does not show evidence for infection. Influenza testing was negative. EKG showed a sinus rhythm, no acute ischemia. Cardiac enzyme testing times one is not consistent with acute cardiac injury. Chest film does not show pneumonia, mediastinal widening or CHF. Influenza testing was negative. testing was negative. The patient received IV saline. She was given oral Protonix and oral Zantac. She received IV Compazine, IV Benadryl and a small amount of IV Keppra. Patient received IV Zofran. She received albuterol via MDI. The patient feels markedly better. She is doing well. I suspect that she has acute bronchitis. The coughing has caused a lot of chest pain and led to her headache. The headache is likely migrainous. The vomiting is consistent with a migraine. The patient I believe is stable for discharge. She will be discharged with Zofran, albuterol, [id number] pain medication. I will prescribe some Tessalon Perles for cough. She will be on Prilosec to help with the upset stomach and presumed gastritis. If things are worsening, if she is not improving, she'll return for reassessment. Of note, I suspect the blood in the vomitus was secondary to some tearing of the esophagus from forceful vomiting-rectal exam here was heme negative. Medication Reconcilliation Current Medication List: was personally reviewed by me Blood Pressure Screening Patient's blood pressure: Elevated blood pressure Blood pressure disposition: Referred to PCP Impression Primary Impression: Vomiting Additional Impressions: Headache Acute bronchitis Anterior chest wall pain Scribe Attestation The scribe's documentation has been prepared under my direction and personally reviewed by me in its entirety. I confirm that the note above accurately reflects all work, treatment, procedures, and medical decision making performed by me. Departure Information Dispostion Home / Self-Care Prescriptions Omeprazole (PRILOSEC) 20 Mg Capcr 20 MG PO DAILY, #30 CAP Prov: Tristin Pritchett M.D. 03/28/17 Ondasetron Odt (ZOFRAN ODT) 4 Mg Tab 4 MG SL Q6H for Nausea, #6 TAB Prov: Tristin Pritchett M.D. 03/28/17 Benzonatate (TESSALON PERLES) 100 Mg Cap 100-200 MG PO TID Y for Cough, #15 CAP Prov: Tristin Pritchett M.D. 03/28/17 Referrals Haim Kat M.D. ([facility]) (PCP) Patient Instructions My [facility] Additional Instructions zofran 1-2 tab as needed for nausea bland diet--crackers, soup, toast, gatorade tylenol for pain rest use prilosec for 1 month for the stomach albuterol 3 puffs every 6 hours for cough and bronchitis tessalon perles 1-2 tab 3x per day for cough as needed return if worsening Problem Qualifiers
[2017-03-28 18:34] LABS: BASO % 0.5 %; BASO ABS # 0.04 K/uL (0-0.2); EOS % 1.9 %; EOS ABS # 0.16 K/uL (0-0.5); HEMOGLOBIN 17.2 g/dL (12.0-16.0); IG# 0.02 K/uL (0.00-0.02); LYMPH % 15.8 %; LYMPH ABS # 1.35 K/uL (1.2-3.4); MEAN CELL VOLUME 87.3 fL (80-100); MEAN CORPUSCULAR HEMOGLOBIN 31.3 pg (25-34); MEAN CORPUSCULAR HGB CONC 35.8 g/dl (32-36); MONO % 6.2 %; MONO ABS # 0.53 K/uL (0.11-0.59); NEUT % 75.4 %; NEUT ABS # 6.44 K/uL (1.4-6.5); PLATELET COUNT 281 K/uL (130-400); RED CELL DISTRIBUTION WIDTH CV 12.6 % (11.5-14.5); RED CELL DISTRIBUTION WIDTH SD 40.3 fL (36.4-46.3); WHITE BLOOD COUNT 8.54 K/uL (4.8-10.8)
[2017-03-28 19:04] LABS: ALBUMIN 3.7 gm/dl (3.4-5.0); ALT/SGPT 21 U/L (12-78); BLOOD UREA NITROGEN 10 mg/dl (7-18); CALCIUM 9.2 mg/dl (8.5-10.1); CARBON DIOXIDE 22 mmol/L (21-32); CREATININE 0.69 mg/dl (0.60-1.20); GLUCOSE 101 mg/dl (70-99); POTASSIUM 3.6 mmol/L (3.5-5.1); SODIUM 137 mmol/L (136-145)
[2017-03-28 19:09] LABS: ALKALINE PHOSPHATASE 54 U/L (45-117); AST/SGOT 12 U/L (15-37); TOTAL PROTEIN 7.9 gm/dl (6.4-8.2)
[2017-03-28 19:19] LABS: INFLUENZA B ANTIGEN Neg for Influ B (NEG)
[2017-03-28] MEDS ORDERED: FRCT/ PO (19:27)
[2017-03-28] MEDS ORDERED: PRLSR20 PO (20:22)
[2017-03-28] MEDS ORDERED: BENZ100C18 PO (20:22)
[2017-03-28] MEDS ORDERED: ONDA4TAB10 SL (20:22)
[2017-03-28] MEDS ORDERED: ALBUTEROL HFA 8 GM INHALER INH ONE (20:30)
[2017-03-28] MEDS ORDERED: ONDANSETRON HOME PACK 4MG OD TAB PO ONE (20:30)
[2017-03-28 21:00] VITALS: BP 117/86; PULSE 87; O2SAT 96
== END 2017-03-28 21:01 | disposition home or self-care (01) ==
LOC: C.EDB 16:27 → C.EDC 21:01
DX: R11.10 Vomiting, unspecified (principal); R51 Headache; J20.9 Acute bronchitis, unspecified; R07.89 Other chest pain; G40.909 Epilepsy, unspecified, not intractable, without status epilepticus; E28.2 Polycystic ovarian syndrome; Z85.71 Personal history of Hodgkin lymphoma; Z90.89 Acquired absence of other organs; Z83.3 Family history of diabetes mellitus; Z82.49 Family history of ischemic heart disease and other diseases of the circulatory system; Z82.0 Family history of epilepsy and other diseases of the nervous system; Z79.899 Other long term (current) drug therapy

== ENCOUNTER 2017-10-13 12:31 | Emergency (ER) | payer OTHER ==
[~2017-10-13] VITALS: Ht 167.6 cm; Wt 96.0 kg
[~2017-10-13 12:31] MED LIST changes: -CEPH-570 PO; -CHOL1000 PO; +FRCT/ PO; -IBUP-1450 PO; -NORE5TAB5 PO; -OXYC-57 PO; -PRENTAB26 PO
[2017-10-13 12:38] VITALS: TEMP 36.6; Ht 167.6 cm; Wt 96.0 kg
[2017-10-13] MEDS ORDERED: PROCHLORPERAZINE 5 MG/ML 2 ML VIAL IV STA (13:37)
[2017-10-13] MEDS ORDERED: SODIUM CHLORIDE 0.9% 1000ML 1,000 ML IV STA (13:37)
[2017-10-13] MEDS ORDERED: KETOROLAC TROMETHAMINE 30 MG/ML VIAL IV STA (13:37)
[2017-10-13] MEDS ORDERED: DiphenhydrAMINE HCL 50 MG/ML VIAL IV STA (13:37)
[2017-10-13] MEDS ORDERED: DEXAMETHASONE INJ 8 MG in SYRINGE 0 ML IV STA (13:37)
[2017-10-13] MEDS ORDERED: DEXAMETHASONE SOD INJ 4 MG/ML VIAL ONE (13:45)
--- NOTE | 2017-10-13 13:49 | EMERGENCY ROOM VISIT NOTE ---
History Report prepared by Khari: Jag Morales Under the Supervision of: Dr. Tristin Pritchett M.D. First contact with patient: 13:32 Chief Complaint: HEADACHE Stated Complaint: MIGRAINE,FAINTING,NAUSEA,BALANCE History of Present Illness The patient is a 41 year old female who presents to the Emergency Room with complaints of a constant headache for the past 3 days. Patient states the pain is located on her head bilaterally and behind her eyes. She describes the headache as a "5/10" in severity. She adds that light worsens her headache. Patient has a history of migraines and states her current headache feels similar. She states she takes Fioricet but it has not relieved her symptoms. She states she gets migraines "once a week" and that her menstrual periods can trigger them. She states she is not currently on her menstrual cycle. Patient states she does not always come to the ER for her migraines. Patient adds she had a syncopal episode yesterday due to the headache. She states she felt nauseas and dizzy prior to the episode. She denies seizing and states she "remembers the whole event". Patient adds she has neck pain. Patient is present with her significant other. He denies the patient hitting her head. He states the patient has a history of syncopal episodes due to her headaches. Patient states she cannot remember her last CT Head. Past medical history includes AVM. Patient states she vomited yesterday but has not today. She denies any urinary symptoms, chance of , or history of diabetes. Source of History: patient Onset: 3 days ago Position: head, eye (bilateral) Symptom Intensity: 5/10 Timing: constant Modifying Factors (Worsening): other (Light) Modifying Factors (Relieving): other (None) Associated Symptoms: + neck pain, + nausea, No vomiting, No urinary symptoms Review of Systems See HPI for pertinent positives & negatives. A total of 10 systems reviewed and were otherwise negative. Past Medical & Surgical Medical Problems: (1) Epilepsy (2) Hodgkin's granuloma of abdomen (3) PCOS (polycystic ovarian syndrome) (4) hemorrhage (5) hemorrhage, condition (6) uterine contractions in third trimester, antepartum (7) RULE OUT RUPTURED MEMBRANES 34 WEEKS (8) RULE OUT RUPTURED MEMBRANES 34 WEEKS (9) Wound seroma Surgical Problems: (1) History of appendectomy Family History Cancer Diabetes mellitus Heart disease Hypertension Seizures Social History Smoking Status: Never Smoker Alcohol Use: none Marital Status: Housing Status: lives with family Occupation Status: employed Current/Historical Medications Scheduled Escitalopram (Lexapro), 10 MG PO DAILY Levetiracetam (Keppra), 1,000 MG PO BID Magnesium Oxide (Mag-Ox), 400 MG PO BID Scheduled PRN Acetamin/Butalbital/Caffeine (Fioricet), 1 TAB PO DIRECTED PRN for Migraine Allergies Coded Allergies: Estrogens (Verified Allergy, Severe, MIGRAINES THEN SEIZURE, 10/13/17) Gadolinium (Verified Allergy, Severe, SHORTNESS OF BREATH, 10/13/17) Iodinated Diagnostic Agents (Verified Allergy, Severe, SHORTNESS OF BREATH , 10/13/17) Zonisamide (Verified Allergy, Severe, DIFFICULTY BREATHING, 10/13/17) Clonazepam (Verified Allergy, Intermediate, RASH, 10/13/17) Phenytoin (Verified Allergy, Intermediate, RASH, FEVER, 10/13/17) Carbamazepine (Verified Allergy, Unknown, RASH, 10/13/17) Lamotrigine (Verified Allergy, Unknown, RASH SOB, 10/13/17) Latex1 -Allergic Contact Dermititis (Verified Allergy, Unknown, `, 10/13/17) Nickel (Verified Allergy, Unknown, RASH WITH NICKEL, GOLD, STAINLESS STEEL , 10/13/17) Sulfa Drugs (Verified Allergy, Unknown, HIVES, 10/13/17) Sulfonylureas (Verified Allergy, Unknown, HIVES, 10/13/17) Physical Exam Vital Signs Date Time Temp Pulse Resp B/P (MAP) Pulse Ox O2 Delivery O2 Flow Rate FiO2 10/13/17 16:15 69 17 120/79 99 10/13/17 14:05 75 18 118/71 98 Room Air 10/13/17 12:38 36.6 71 20 157/116 96 Room Air Physical Exam GENERAL: Patient is in no acute distress. HEENT: No acute trauma, normocephalic atraumatic, mucous membranes moist, no nasal congestion, no scleral icterus. Pupils equal and reactive to light. NECK: Tender to the right posterior neck musculature, no stridor, no adenopathy , no meningismus, trachea is midline. LUNGS: Clear to auscultation bilaterally, no wheeze, no rhonchi, breath sounds equal. HEART: Without murmurs gallops or rubs, regular rate and rhythm. ABDOMEN: Soft, nontender, bowel sounds positive, no hernias, no peritonitis. EXTREMITIES: No cyanosis or edema, full range of motion of all the joints without pain or difficulty, no signs for acute trauma. NEUROLOGIC: Oriented x 3, no acute motor or sensory deficits, no focal weakness. No cerebellar deficits. SKIN: No rash, no jaundice, no diaphoresis Medical Decision & Procedures ER Provider Diagnostic Interpretation: Radiology results as stated below per my review and radiologist interpretation: C-SPINE ROUTINE 4 OR 5 VIEWS HISTORY: Trauma fall, pain COMPARISON: None. FINDINGS: The cervical spine is visualized from C1 through the superior endplate of T1. There is no fracture. No subluxation. Disc spaces are preserved. Prevertebral soft tissues and the atlantodens interval are intact. Minimal degenerative intervertebral this change. IMPRESSION: No fracture or subluxation within the cervical spine. Minimal degenerative disc change. The above report was generated using voice recognition software. It may contain grammatical, syntax or spelling errors. Electronically signed by: Ovidio Armstrong M.D. 10/13/2017 2:[address] HEAD WITHOUT CONTRAST (CT) CLINICAL HISTORY: Headache. Venous angioma.. COMPARISON STUDY: 07/29/2009 TECHNIQUE: Axial CT of the brain is performed from the vertex to the skull base. IV contrast was not administered for this examination. A dose lowering technique was utilized adhering to the principles of ALARA. CT DOSE: 537.48 mGy.cm FINDINGS: No intra or extra-axial mass lesions are visualized. There is no CT evidence of acute cortical infarction. There is no evidence of midline shift. There is no acute hemorrhage. No calvarial fractures are visualized. There is no evidence of pathologic ventricular dilatation. There is no evidence of acute sinusitis IMPRESSION: No acute intracranial findings Electronically signed by: Antonio Zaldivar M.D. 10/13/2017 2:21 PM Laboratory Results 10/13/17 13:11 10/13/17 13:11 Test 10/13/17 13:11 Red Blood Count 5.18 M/uL (4.2-5.4) Mean Corpuscular Volume 89.0 fL (80-100) Mean Corpuscular Hemoglobin 30.7 pg (25-34) Mean Corpuscular Hemoglobin Concent 34.5 g/dl (32-36) RDW Standard Deviation 43.4 fL (36.4-46.3) RDW Coefficient of Variation 13.3 % (11.5-14.5) Mean Platelet Volume 10.0 fL (7.4-10.4) Anion Gap 7.0 mmol/L (3-11) Est Creatinine Clear Calc Drug Dose 124.2 ml/min Estimated GFR () 124.4 Estimated GFR (Non- 107.3 BUN/Creatinine Ratio 12.2 (10-20) Calcium Level 8.8 mg/dl (8.5-10.1) Laboratory results reviewed by me. Medications Administered Medications (Trade) Dose Ordered Sig/Dank Route Start Time Stop Time Status Last Admin Dose Admin Sodium Chloride 1,000 ml @ 999 mls/hr Q1H1M STAT IV 10/13/17 13:37 10/13/17 14:37 DC 10/13/17 13:50 999 MLS/HR Ketorolac Tromethamine (Toradol Inj) 15 mg NOW STAT IV 10/13/17 13:37 10/13/17 13:43 DC 10/13/17 13:50 15 MG Prochlorperazine Edisylate (Compazine Inj) 10 mg NOW STAT IV 10/13/17 13:37 10/13/17 13:43 DC 10/13/17 13:50 10 MG Diphenhydramine HCl (Benadryl Inj) 50 mg NOW STAT IV 10/13/17 13:37 10/13/17 13:43 DC 10/13/17 13:50 50 MG Dexamethasone Sodium Phosphate (Decadron Inj) 8 mg STK-MED ONCE .ROUTE 10/13/17 13:45 10/13/17 13:46 DC 10/13/17 13:50 8 MG ECG Per My Interpretation Indication: syncope Rate (beats per minute): 87 Rhythm: normal sinus Findings: other (No ST elevation, no PVCs) ED Course 1335: The patient was evaluated in room A11A. A complete history and physical exam was performed. 1337: Dexamethasone Sodium Phosphate 8mg/Syringe 2ml @ 1mls/min IV, Benadryl Inj 50mg IV, Compazine Inj 10mg IV, Toradol Inj 15mg IV, and Sodium Chloride 1000 ml @ 999 mls/hr IV. 1552: Reevaluated the patient. She states she is feeling better. Discussed results and discharge instructions. She verbalized understanding and agreement. The patient is ready for discharge. Medical Decision Differential Diagnosis: Migraine headache, dysrhythmia, dehydration, electrolyte imbalance, anemia, cervical spine injury, intracranial bleeding, and meningitis. There is no leukocytosis or concerning anemia. No significant electrolyte abnormality or kidney failure. C-spine films show no evidence for fracture or bony dislocation. Brain CT shows no acute bleed or mass-effect. EKG shows a sinus rhythm, no acute ischemia. On exam, the patient was not febrile or toxic. There is no meningismus. She had no focal neurologic findings. The patient received IV saline, IV Toradol, IV Decadron, IV Compazine and IV Benadryl. She feels markedly improved. The patient's headache is very likely migrainous. The neck pain is I think muscular and may have been from the near syncopal event yesterday. Patient has had near syncope and syncope before when she has had severe headaches. I do think the patient is stable for discharge and she can return of course if worsening. She was discharged in stable condition and feeling improved. Medication Reconcilliation Current Medication List: was personally reviewed by me Blood Pressure Screening Patient's blood pressure: Normal blood pressure Blood pressure disposition: Did not require urgent referral Impression Primary Impression: Headache Additional Impression: Near syncope Scribe Attestation The scribe's documentation has been prepared under my direction and personally reviewed by me in its entirety. I confirm that the note above accurately reflects all work, treatment, procedures, and medical decision making performed by me. Departure Information Dispostion Home / Self-Care Referrals Haim Kat M.D.(CHRISTINA) (PCP) Forms HOME CARE DOCUMENTATION FORM, IMPORTANT VISIT INFORMATION Patient Instructions My [facility] Additional Instructions fluids rest return if worsening lab testing and imaging was all ok today Problem Qualifiers
[2017-10-13 14:11] LABS: HEMATOCRIT 46.1 % (37-47); HEMOGLOBIN 15.9 g/dL (12.0-16.0); MEAN CORPUSCULAR HEMOGLOBIN 30.7 pg (25-34); MEAN CORPUSCULAR HGB CONC 34.5 g/dl (32-36); PLATELET COUNT 253 K/uL (130-400); RED CELL DISTRIBUTION WIDTH CV 13.3 % (11.5-14.5); RED CELL DISTRIBUTION WIDTH SD 43.4 fL (36.4-46.3); WHITE BLOOD COUNT 6.56 K/uL (4.8-10.8)
--- NOTE | 2017-10-13 14:23 | DIAGNOSTIC IMAGING REPORT ---
CT HEAD WITHOUT CONTRAST (CT) CLINICAL HISTORY: Headache. Venous angioma.. COMPARISON STUDY: 07/29/2009 TECHNIQUE: Axial CT of the brain is performed from the vertex to the skull base. IV contrast was not administered for this examination. A dose lowering technique was utilized adhering to the principles of ALARA. CT DOSE: 537.48 mGy.cm FINDINGS: No intra or extra-axial mass lesions are visualized. There is no CT evidence of acute cortical infarction. There is no evidence of midline shift. There is no acute hemorrhage. No calvarial fractures are visualized. There is no evidence of pathologic ventricular dilatation. There is no evidence of acute sinusitis IMPRESSION: No acute intracranial findings Electronically signed by: Antonio Zaldivar M.D. 10/13/2017 2:21 PM Dictated Date/Time: 10/13/2017 2:19 PM
[2017-10-13 14:25] LABS: CREATININE 0.71 mg/dl (0.60-1.20)
[2017-10-13 14:26] LABS: CALCIUM 8.8 mg/dl (8.5-10.1); POTASSIUM 3.7 mmol/L (3.5-5.1)
--- NOTE | 2017-10-13 14:51 | DIAGNOSTIC IMAGING REPORT ---
C-SPINE ROUTINE 4 OR 5 VIEWS HISTORY: Trauma fall, pain COMPARISON: None. FINDINGS: The cervical spine is visualized from C1 through the superior endplate of T1. There is no fracture. No subluxation. Disc spaces are preserved. Prevertebral soft tissues and the atlantodens interval are intact. Minimal degenerative intervertebral this change. IMPRESSION: No fracture or subluxation within the cervical spine. Minimal degenerative disc change. The above report was generated using voice recognition software. It may contain grammatical, syntax or spelling errors. Electronically signed by: Ovidio Armstrong M.D. 10/13/2017 2:50 PM Dictated Date/Time: 10/13/2017 2:49 PM
[2017-10-13 16:15] VITALS: BP 120/79; PULSE 69; O2SAT 99
== END 2017-10-13 16:20 | disposition home or self-care (01) ==
LOC: C.EDB 12:34 → C.EDA 16:20
DX: R51 Headache (principal); R55 Syncope and collapse; G40.909 Epilepsy, unspecified, not intractable, without status epilepticus; Z79.899 Other long term (current) drug therapy; Z88.2 Allergy status to sulfonamides; Z88.8 Allergy status to other drugs, medicaments and biological substances; Z91.040 Latex allergy status